=== PATIENT | male | born 1955 | race Caucasian/White ===

== ENCOUNTER → 2019-07-18 09:13 | Outpatient (BNVA) | payer OTHER, SELFPAY | PROVIDERS: PCP Nurse Practitioner Family; Visit Provider Anesthesiology | DX: M54.5 Low back pain (principal); Z79.891 Long term (current) use of opiate analgesic | CPT/HCPCS: 99213; 99214 ==

== ENCOUNTER → 2019-09-15 09:12 | Outpatient (BNVA) | payer OTHER, SELFPAY | PROVIDERS: PCP Nurse Practitioner Family; Visit Provider Anesthesiology | DX: G89.29 Other chronic pain (principal); M48.061 Spinal stenosis, lumbar region without neurogenic claudication; M51.36 Other intervertebral disc degeneration, lumbar region; M47.816 Spondylosis without myelopathy or radiculopathy, lumbar region; M96.1 Postlaminectomy syndrome, not elsewhere classified; Z79.891 Long term (current) use of opiate analgesic | CPT/HCPCS: 99214 ==

== ENCOUNTER 2019-10-17 09:19 | Outpatient (CLI) | payer MEDICARE, BC, SELFPAY ==
--- NOTE | 2019-10-17 | MR_ITS ---
WS: [id number] MRI HEAD WITH CONTRAST TECHNIQUE: Sagittal T1, T2 axial, T2 axial FLAIR, axial susceptibility weighted imaging, axial diffus ion weighted images, and coronal T2 images were obtained. Pre and post-T1 axial and post T1 coronal i mages. ADC and FSPGR images. CLINICAL INFORMATION: HEADACHE WITH WEIGHT LOSS COMPARISON: None. FINDINGS: No evidence of restricted diffusion to suggest acute ischemia. Ventricular system and basal cisterns are patent. Mild small vessel changes. Moderate parenchymal volume loss. Normal posterior fossa. Norm al vascular flow voids at the skull base. No extra-axial fluid collections. No evidence of mass or ma ss effect. Ethmoid sinusitis. Mastoid air cells well aerated. Paranasal sinuses are otherwise well ae rated. Normal optic chiasm and pituitary infundibulum. No abnormal intracranial enhancement. Normal dural ve nous sinuses. MR/MR head wo/w con [id number] IMPRESSION: 1. No evidence of restricted diffusion to suggest acute ischemia. 2. Mild small vessel changes with moderate parenchymal volume loss. 3. No abnormal gadolinium enhancement. 4. Ethmoid sinusitis 5. No hemosiderin on the susceptibility weighted images.
== END 2019-10-17 09:20 | disposition home or self-care (01) ==
LOC: RADSHAW 09:20
PROVIDERS: PCP Nurse Practitioner Family; Visit Provider Nurse Practitioner Family
DX: R51 Headache (principal); R63.4 Abnormal weight loss; J32.2 Chronic ethmoidal sinusitis
CPT/HCPCS: 70553; A9579

== ENCOUNTER → 2020-01-12 09:15 | Outpatient (BNVA) | payer OTHER, SELFPAY | PROVIDERS: PCP Nurse Practitioner Family; Visit Provider Anesthesiology | DX: G89.29 Other chronic pain (principal); M51.36 Other intervertebral disc degeneration, lumbar region; M48.061 Spinal stenosis, lumbar region without neurogenic claudication; M47.816 Spondylosis without myelopathy or radiculopathy, lumbar region; M47.819 Spondylosis without myelopathy or radiculopathy, site unspecified; M96.1 Postlaminectomy syndrome, not elsewhere classified; M25.551 Pain in right hip; M25.552 Pain in left hip; Z79.891 Long term (current) use of opiate analgesic | CPT/HCPCS: 99214 ==

== ENCOUNTER → 2020-03-06 13:15 | Outpatient (BNVA) | payer OTHER, SELFPAY | PROVIDERS: PCP Nurse Practitioner Family; Visit Provider Anesthesiology | DX: G89.29 Other chronic pain (principal); M47.816 Spondylosis without myelopathy or radiculopathy, lumbar region; M48.061 Spinal stenosis, lumbar region without neurogenic claudication; M51.36 Other intervertebral disc degeneration, lumbar region; M47.819 Spondylosis without myelopathy or radiculopathy, site unspecified; M96.1 Postlaminectomy syndrome, not elsewhere classified; Z79.891 Long term (current) use of opiate analgesic | CPT/HCPCS: 99213; 99214 ==

== ENCOUNTER → 2020-05-10 12:37 | Outpatient (BNVA) | payer OTHER, SELFPAY | PROVIDERS: PCP Nurse Practitioner Family; Visit Provider Anesthesiology | DX: G89.29 Other chronic pain (principal); M96.1 Postlaminectomy syndrome, not elsewhere classified; M47.816 Spondylosis without myelopathy or radiculopathy, lumbar region; M48.061 Spinal stenosis, lumbar region without neurogenic claudication; M51.36 Other intervertebral disc degeneration, lumbar region; M47.819 Spondylosis without myelopathy or radiculopathy, site unspecified; Z79.891 Long term (current) use of opiate analgesic | CPT/HCPCS: 99213; 99214 ==

== ENCOUNTER → 2020-07-11 13:36 | Outpatient (BNVA) | payer OTHER, SELFPAY | PROVIDERS: PCP Nurse Practitioner Family; Visit Provider Anesthesiology | DX: G89.29 Other chronic pain (principal); M47.816 Spondylosis without myelopathy or radiculopathy, lumbar region; M51.36 Other intervertebral disc degeneration, lumbar region; M48.061 Spinal stenosis, lumbar region without neurogenic claudication; M96.1 Postlaminectomy syndrome, not elsewhere classified; M47.819 Spondylosis without myelopathy or radiculopathy, site unspecified; Z79.891 Long term (current) use of opiate analgesic | CPT/HCPCS: 99213; 99214 ==

== ENCOUNTER → 2020-09-05 14:00 | Outpatient (BNVA) | payer OTHER, SELFPAY | PROVIDERS: PCP Nurse Practitioner Family; Visit Provider Anesthesiology | DX: G89.29 Other chronic pain (principal); M96.1 Postlaminectomy syndrome, not elsewhere classified; M47.816 Spondylosis without myelopathy or radiculopathy, lumbar region; M48.061 Spinal stenosis, lumbar region without neurogenic claudication; M51.36 Other intervertebral disc degeneration, lumbar region; M47.819 Spondylosis without myelopathy or radiculopathy, site unspecified; Z79.891 Long term (current) use of opiate analgesic | CPT/HCPCS: 99213 ==

== ENCOUNTER → 2020-11-07 13:16 | Outpatient (BNVA) | payer OTHER, SELFPAY | PROVIDERS: PCP Nurse Practitioner Family; Visit Provider Anesthesiology | DX: G89.29 Other chronic pain (principal); M47.816 Spondylosis without myelopathy or radiculopathy, lumbar region; M48.061 Spinal stenosis, lumbar region without neurogenic claudication; M51.36 Other intervertebral disc degeneration, lumbar region; M96.1 Postlaminectomy syndrome, not elsewhere classified; Z79.891 Long term (current) use of opiate analgesic | CPT/HCPCS: 99213 ==

== ENCOUNTER → 2021-01-10 10:02 | Outpatient (BNVA) | payer OTHER, SELFPAY | PROVIDERS: PCP Family Medicine; Visit Provider Anesthesiology | DX: G89.29 Other chronic pain (principal); M47.816 Spondylosis without myelopathy or radiculopathy, lumbar region; M48.061 Spinal stenosis, lumbar region without neurogenic claudication; M51.36 Other intervertebral disc degeneration, lumbar region; M96.1 Postlaminectomy syndrome, not elsewhere classified; Z79.891 Long term (current) use of opiate analgesic | CPT/HCPCS: 99213 ==

== ENCOUNTER → 2021-03-12 14:02 | Outpatient (BNVA) | payer OTHER, SELFPAY | PROVIDERS: PCP Family Medicine; Visit Provider Anesthesiology | DX: G89.29 Other chronic pain (principal); M96.1 Postlaminectomy syndrome, not elsewhere classified; M48.061 Spinal stenosis, lumbar region without neurogenic claudication; M51.36 Other intervertebral disc degeneration, lumbar region; M47.816 Spondylosis without myelopathy or radiculopathy, lumbar region; M47.819 Spondylosis without myelopathy or radiculopathy, site unspecified; Z79.891 Long term (current) use of opiate analgesic | CPT/HCPCS: 99213 ==

== ENCOUNTER → 2021-05-20 09:41 | Outpatient (BNVA) | payer OTHER, SELFPAY | PROVIDERS: PCP Family Medicine; Visit Provider Anesthesiology | DX: G89.29 Other chronic pain (principal); M96.1 Postlaminectomy syndrome, not elsewhere classified; M47.816 Spondylosis without myelopathy or radiculopathy, lumbar region; M48.061 Spinal stenosis, lumbar region without neurogenic claudication; M51.36 Other intervertebral disc degeneration, lumbar region; M47.819 Spondylosis without myelopathy or radiculopathy, site unspecified; Z79.891 Long term (current) use of opiate analgesic; Z87.891 Personal history of nicotine dependence | CPT/HCPCS: 99213 ==

== ENCOUNTER → 2022-11-02 11:30 | Outpatient (BNVA) | payer MEDICARE, BC, SELFPAY | PROVIDERS: PCP Family Medicine; Visit Provider Family Medicine | DX: I10 Essential (primary) hypertension (principal); Z12.5 Encounter for screening for malignant neoplasm of prostate; Z76.89 Persons encountering health services in other specified circumstances | CPT/HCPCS: 80053; 80061; 85025; G0103 ==

== ENCOUNTER 2025-04-16 07:08 | Inpatient (IN) | payer MEDICARE, BC, SELFPAY ==
--- OUTSIDE RECORDS SUMMARY | 2024-04-22 04:00 | XMS_ITS ---
Author Organization [facility] Address [address] [place] [address] Care Team Providers Care Pipe Roller Name Role Phone Bill Robert Primary Care Provider Unavailabl e Migration, Provider Unavailable Unavailable REASON FOR VISIT EMR-Richard Encounters Encounter Location Date Provider Diagnosis Migrated_Facility 0 0 04/22/2024 Provider Migration Plan Of Treatment No Information Progress Notes * Tommie GRANDADOB:1955 (70 yo M)Acc No.[id number]:04/22/2024 Patient: Tommie HONG :1955 A ge:69 Y S ex:Male Address:[address], [place], [address] Subjective: * Chief Complaints: * E MR-Richard * * Date:
--- OUTSIDE RECORDS SUMMARY | 2024-04-23 04:00 | XMS_ITS ---
Author Organization [facility] Address [address] [place] [address] Care Team Providers Care Director Of Field Coordination Name Role Phone Bill Robert Primary Care Provider Unavailabl e Migration, Provider Unavailable Unavailable REASON FOR VISIT EMR-Richard Encounters Encounter Location Date Provider Diagnosis Migrated_Facility 0 0 04/23/2024 Provider Migration Plan Of Treatment No Information Progress Notes * Tommie GRANDADOB:1955 (70 yo M)Acc No.[id number]:04/23/2024 Patient: Tommie HONG :1955 A ge:69 Y S ex:Male Address:[address], [place], [address] Subjective: * Chief Complaints: * E MR-Richard * * Date:
[2025-04-16] VITALS (67 sets, daily range): BP systolic 87–152; BP diastolic 53–78; PULSE 54–119; RESP 10–18; TEMP 36.4–37.4; O2SAT 88–100
--- NOTE | 2025-04-16 07:12 | ECG_ITS ---
[facility] 2025-[facility]16 Pat Name: Tommie Bella Department: Room: Gender: Male Director Title: : 1955 Requested By: Kinsey Salcedo Order Number: [id number] Barbosa MD: Jaycee Hernandez M.D. Measurements Intervals [place] Rate: 93 P: 73 [place]: 309 QRS: 27 QRSD: 102 T: 74 QT: 456 QTc: 569 Interpretive Statements SINUS RHYTHM WITH SINUS ARRHYTHMIA WITH FIRST DEGREE AV BLOCK MODERATE T-WAVE ABNORMALITY, CONSIDER ANTERIOR ISCHEMIA [-0.1+ mV T-WAVE IN V3/V4] Compared to ECG 10/07/2015 12:48:40 First degree AV block now present Possible ischemia now present Sinus tachycardia no longer present T-wave abnormality still present Electronically Signed On 04-17-2025 19:23:42 CDT by Jaycee Hernandez M.D. [email or web address]
--- NOTE | 2025-04-16 07:12 | XRR_ITS ---
PROCEDURE INFORMATION: Exam: XR Abdomen Exam date and time: 04/16/2025 07:22 AM Age: 70 years old Clinical indication: Abdominal pain; Generalized; Additional info: Abdominal pain, hypoxemia TECHNIQUE: Imaging protocol: Radiologic exam of the abdomen. Views: 2 Views. Upright and supine views. COMPARISON: No relevant prior studies available. FINDINGS: Lungs: COPD/emphysema. No airspace disease. Heart/Mediastinum: Cardiac size and configuration is normal. Gastrointestinal tract: Normal. No bowel dilation. Intraperitoneal space: Normal. No free air. Vasculature: IVC stent over the upper abdomen. Bones/joints: Partial visualization of spinal fixation rods. Osteopenia. XR/XR acute abdomen series [id number] IMPRESSION: 1. COPD/emphysema. 2. No airspace disease.
--- OUTSIDE RECORDS SUMMARY | 2025-04-16 07:12 | XMS_ITS | Patient Health Record ---
Author Organization [facility] Address [address] [place] [address] Care Team Providers Care Solar Resource Assessor Name Role Phone Bill Robert Primary Care Provider Unavailabl e Migration, Provider Unavailable Unavailable Reason For Referral No Information Encounters Encounter Location Date Provider Diagnosis Migrated_Facility 0 0 04/22/2024 Provider Migration Migrated_Facility 0 0 04/23/2024 Provider Migration Plan Of Treatment No Information Insurance Providers Payer Name Payer Address Payer Phone Subscriber Number Group Number Insured Name Patient Relationship to Insured Coverage Start Date Coverage End Date [employer] [place] [address] [place] [phone] [id number] Tommie Bella Self - patient is the insured 6
--- NOTE | 2025-04-16 07:13 | W.ED.NAVMDI ---
HPI - Nausea/Vomiting/Diarrhea General: Chief complaint: Abdominal Pain Stated complaint: n/v x 4 days Time Seen by Provider: 04/16/25 07:08 History of Present Illness: 70-year-old man with a history of hypertension, chronic lumbar pain who presents to the emergency room with nausea and vomiting. He says he is been vomiting for 4 days. He says he been able to make it to the toilet and so he had not sought medical attention until today when he called an ambulance because he could not even make it to the bathroom before he vomited. He has been having bilious vomiting. No focal abdominal pain. No chest pain. He is requiring some oxygen. He has no chest pain and no cough. He initially states he has not had any abdominal pain. However on exam he has a large angry appearing left inguinal hernia with overlying redness. This is unable to be reduced. He says he has been putting hot packs on it Related Data Home Medications ?Medication ?Instructions ?Recorded ?Confirmed Kratom 4 - 5 g PO BID 04/16/25 04/16/25 acetaminophen 500 mg tablet 100 mg PO QID PRN Fever Or Pain 04/16/25 04/16/25 (Tylenol Extra Strength) cholecalciferol (vitamin D3) 125 125 mcg PO DAILY 04/16/25 04/16/25 mcg (5,000 unit) tablet (Vitamin D3) liver extract 1 tab PO DAILY 04/16/25 04/16/25 magnesium glycinate 100 mg PO DAILY 04/16/25 04/16/25 milk thistle 150 mg capsule 150 mg PO BID 04/16/25 04/16/25 saw palmetto 500 mg capsule 500 mg PO BID 04/16/25 04/16/25 vitamin K2 90 mcg capsule 90 mcg PO DAILY 04/16/25 04/16/25 Allergies Allergy/AdvReac Type Severity Reaction Status Date / Time clonidine Allergy Unknown Verified 11/02/22 09:38 codeine Allergy ADR-Nausea Verified 11/02/22 09:38 haloperidol (From Haldol) Allergy ADR-Anxiety Verified 11/02/22 09:38 meperidine (From Demerol) Allergy ALGY-Anaphy Verified 11/02/22 09:38 laxis pentazocine (From Talwin) Allergy ADR-Nausea Verified 11/02/22 09:38 tramadol Allergy ADR-Nausea Verified 11/02/22 09:38 Review of Systems Narrative: Constitutional symptoms: Negative except as documented in HPI. Skin symptoms: Negative except as documented in HPI. Eye symptoms: Negative except as documented in HPI. ENMT symptoms: Negative except as documented in HPI. Respiratory symptoms: Negative except as documented in HPI. Cardiovascular symptoms: Negative except as documented in HPI. Gastrointestinal symptoms: Negative except as documented in HPI. Genitourinary symptoms: Negative except as documented in HPI. Musculoskeletal symptoms: Negative except as documented in HPI. Neurologic symptoms: Negative except as documented in HPI. Psychiatric symptoms: Negative except as documented in HPI. Endocrine symptoms: Negative except as documented in HPI. PFSH ED PFSH: Medical History (Updated 04/16/25 @ 12:05 by Kinsey Mullins MD) Intractable nausea and vomiting Facet joint disease DDD (degenerative disc disease), lumbar Chronic thoracic spine pain Foraminal stenosis of lumbar region Chronic lumbosacral pain Postlaminectomy syndrome of lumbar region Encounter for long-term use of opiate analgesic Hip pain, bilateral DJD (degenerative joint disease), lumbar Surgical History S/P lumbar fusion Status post total hip replacement, bilateral DR. WEBER Family History Father Cancer Social History Smoking and tobacco/nicotine status: former use of tobacco/nicotine Second hand smoke exposure: No Alcohol intake: never Substance/Drug Use: never Adopted: No Caregiver/support person: No Lives independently: Yes Housing: House Marital status: / Physical Exam Narrative: EXAM NARRATIVE: General: Alert, no acute distress. Skin: Warm, dry. Head: Normocephalic, atraumatic. Neck: Supple, trachea midline. Eye: Extraocular movements are intact. Ears, nose, mouth and throat: Dry oral mucosa. Cardiovascular: Regular, Normal peripheral perfusion. Respiratory: Lungs are clear to auscultation, respirations are non-labored, breath sounds are equal, Symmetrical chest wall expansion. Gastrointestinal: Some distention with diffuse tenderness. There is a large area in the inguinal region there is an incarcerated hernia with overlying redness. This is very tender to palpation. Musculoskeletal: Normal ROM, no deformity. Neurological: Alert and oriented, No focal neurological deficit observed. Psychiatric: Cooperative, appropriate mood & affect. Course Vital Signs: Vital signs: Vital Signs Temperature 98.1 F 04/16/25 07:09 Pulse Rate 82 04/16/25 09:38 Respiratory Rate 17 04/16/25 09:38 Blood Pressure 149/69 04/16/25 09:38 Pulse Oximetry 91 04/16/25 09:38 Oxygen Delivery Me thod Nasal Cannula 04/16/25 07:09 Oxygen Flow Rate 3 04/16/25 07:09 MDM - Nausea/Vomiting/Diarrhea Medical Decision Making Medical decision making: Differential diagnosis for this patient with nausea and vomiting including but not limited to and based on the above HPI, review of systems and physical exam: Urinary tract infection. Appendicitis. Cholecystitis. Colitis. small bowel obstruction. crohn's flare. pancreatitis. gastritis. peptic ulcer. cyclic vomiting. Viral illness. Influenza. COVID. Orders placed to evaluate differential diagnosis based on the above differential, HPI and physical exam Lab Review: Laboratory results were reviewed and interpreted by myself the emergency room physician. Leukocytosis with a white count of 15,000. Patient does have acute renal failure with a creatinine of 1.8 initially. Repeat he has a creatinine of 1.6. His chloride is 60 initially and repeat is 67. Potassium has gone down to 2.8 CRP is 200. Urinalysis is negative for infection. Flu COVID and RSV are negative. AB.69/60/56 with an O2 sat of 91%. On 3 L nasal cannula. Bicarb is 71 on this blood gas. EKG: Time 7:32 AM. Rate 93. Normal sinus rhythm, nonspecific ST changes, no ectopy, normal MT & QRS intervals, This was reviewed and interpreted by myself the ER physician at 7:36 AM Repeat EKG: Time 918. Rate 80. Normal sinus rhythm, nonspecific ST changes, no ectopy, normal MT & QRS intervals, This was reviewed and interpreted by myself the ER physician at 9:[address] of the abdomen and pelvis with out contrast: High-grade proximal small bowel obstruction with incarcerated left inguinal hernia with narrow neck high risk for strangulation. Associated induration in the inguinal hernia sac. No pneumatosis. This was reviewed and interpreted by myself the emergency room physician. I also reviewed the radiology report. Consultation: I spoke with Dr. Wan immediately upon findings of the CT scan. He is evaluated the patient in the emergency room and planning to take to the OR. He does request consultation with the hospitalist service for correction of electrolyte abnormalities. Consultation: I spoke with Dr. Adler who will consult on the patient. This was reviewed and interpreted by myself the emergency room physician. I also reviewed the radiology report. I reviewed the patient's medical record. Patient has very little significant medical history. Only takes vitamin D at home. Reexamination: Patient continues to not have any altered mental status. Pressures have been stable. He is extremely tender in his inguinal area. NG tube has been placed. Assessment and plan: Incarcerated inguinal hernia Small bowel obstruction Sepsis Hypoxemia Hypochloridemia Hypokalemia Dehydration Renal failure Metabolic alkalosis ?NG tube placed for small bowel obstruction. -Surgery consulted and patient's going to the ER. ?3 L normal saline bolus and does seem to have some correction of the low chloride. ?40 mill equivalents potassium chloride ordered -3 L normal saline bolus. This is more than the sepsis bolus in an attempt to continue to correct electrolyte abnormalities and particularly chloride. -Broad-spectrum antibiotics were administered. -Sepsis quality measures. -Lactic acid with a reflex was ordered. -Blood cultures were ordered. ?I reevaluated the patient's volume status after sepsis fluids were given. -I discussed the patient with the hospitalist on-call who is admitting the patient. - Discussed findings and plan with patient. Answered any questions. - All laboratory values were reviewed and interpreted personally by myself, the ER physician - All imaging was reviewed and interpreted personally by myself, the ER physician. - Evaluation and treatment of this problem were appropriate in the emergency setting Critical Care: -I spent a total of 55 minutes of critical care time managing the patient, independent of any other practitioner. -The time involved in the performance of separately reportable procedures was not counted towards critical care time. Lab Data 04/16/25 07:13 04/16/25 09:32 Radiology Impressions Chest/Abdomen X-ray 04/16/25 07:12 IMPRESSION: 1. COPD/emphysema. 2. No airspace disease. Abdomen/Pelvis CT 04/16/25 08:06 IMPRESSION: 1. High-grade proximal small bowel obstruction with incarcerated LEFT inguinal hernia with a narrow neck high risk for strangulation. Associated induration in the inguinal hernia sac. No pneumatosis. Recommend urgent surgical consultation. 2. Small bowel distal to the hernia appears collapsed. Colon is collapsed. Notified Kinsey Mullins MD at 04/16/2025 9:08 AM. Laboratory Results WBC 15.63 10^3/uL (3.29-11.43) H 04/16/25 07:13 RBC 5.82 10^6/uL (3.85-5.65) H 04/16/25 07:13 Hgb 17.90 g/dL (11.27-16.99) H 04/16/25 07:13 Hct 51.5 % (37-53) 04/16/25 07:13 MCV 88.5 fl (82-101) 04/16/25 07:13 MCH 30.8 pg (27-33) 04/16/25 07:13 MCHC 34.8 g/dL (30-55) 04/16/25 07:13 RDW 12.6 % (12.1-15.1) 04/16/25 07:13 Plt Count 429 10^3/cmm (157-399) H 04/16/25 07:13 MPV 10.0 fL (7.4-10.4) 04/16/25 07:13 Neut % (Auto) 83.7 % 04/16/25 07:13 Lymph % (Auto) 3.5 % 04/16/25 07:13 [place] % (Auto) 12.1 % 04/16/25 07:13 Eos % (Auto) 0.0 % 04/16/25 07:13 Baso % (Auto) 0.2 % 04/16/25 07:13 Neut # (Auto) 13.09 10^3/uL (1.8-7.7) H 04/16/25 07:13 Lymph # (Auto) 0.5 10^3/uL (0.8-4.8) L 04/16/25 07:13 [place] # (Auto) 1.9 10^3/uL (0.2-0.9) H 04/16/25 07:13 Eos # (Auto) 0.0 10^3/uL (0.0-0.8) 04/16/25 07:13 Baso # (Auto) 0.0 10^3/uL (0.0-0.1) 04/16/25 07:13 Nucleated RBC % (auto) 0 % 04/16/25 07:13 Nucleated RBCs # 0.0 /100WBC 04/16/25 07:13 Specimen Type Arterial 04/16/25 07:16 Sample Site Radial, left 04/16/25 07:16 ABG pH 7.68 (7.35-7.45) H* 04/16/25 07:16 ABG pCO2 60.0 mmHg (35-45) H 04/16/25 07:16 ABG pO2 56.7 mmHg (80.0-100.0) L 04/16/25 07:16 ABG HCO3 71.1 mmol/L (22-26) H 04/16/25 07:16 ABG O2 Saturation 92.9 04/16/25 07:16 ABG Base Excess 42.0 mmol/L (-2.0-2.0) H 04/16/25 07:16 Malcolm Test Pos 04/16/25 07:16 A-a O2 Gradient 2.7 mmHg (5-10) L 04/16/25 07:16 Hematocrit 52.8 % (42-52) H 04/16/25 07:16 Hgb O2 Saturation 91.0 % (95-100) L 04/16/25 07:16 Carboxyhemoglobin 1.2 %THgb (0.4-20.1) 04/16/25 07:16 Methemoglobin 0.8 % (0.4-1.5) 04/16/25 07:16 Total Hemoglobin 17.2 g/dL (14-18) 04/16/25 07:16 Sodium 131.0 mmol/L (131-143) 04/16/25 07:16 Potassium 2.7 mmol/L (3.5-5.0) L 04/16/25 07:16 Glucose 141.0 mg/dL (70-115) H 04/16/25 07:16 Ionized Calcium 1.0 mmol/L (1.1-1.4) L 04/16/25 07:16 O2 Delivery Device Nc 04/16/25 07:16 O2 Liters/Min 3.0 % 04/16/25 07:16 Tin Recovery Worker ID [place] 04/16/25 07:16 Sodium 132 mmol/L (136-145) L 04/16/25 09:32 Potassium 2.8 mmol/L (3.5-5.1) L* 04/16/25 09:32 Chloride 67 mmol/L (98-107) L 04/16/25 09:32 Carbon Dioxide 49 mmol/L (22-29) H* 04/16/25 09:32 Anion Gap 18.8 (5-19) 04/16/25 09:32 BUN 44 mg/dL (8-23) H 04/16/25 09:32 Creatinine 1.6 mg/dL (0.7-1.2) H 04/16/25 09:32 GFR Calculation Not Reportable 04/16/25 09:32 Glucose 124 mg/dL (65-115) H 04/16/25 09:32 Calculated Osmolality 287 mOsm/kg (285-295) 04/16/25 09:32 Lactic Acid 3.1 mmol/L (0.5-2.2) H 04/16/25 07:13 Lactic Acid (Sepsis) 1.6 mmol/L (0.5-2.2) 04/16/25 10: Calcium 8.9 mg/dL (8.5-10.5) 04/16/25 09:32 Total Bilirubin 0.8 mg/dL (0.15-1.2) 04/16/25 07:13 AST 22 U/L (0-40) 04/16/25 07:13 ALT 25 U/L (0-41) 04/16/25 07:13 Alkaline Phosphatase 90 U/L (40-130) 04/16/25 07:13 Troponin T Baseline 24 ng/L (0-15) H 04/16/25 07:13 Troponin T 120 Minute 17.65 ng/L (0-15) H 04/16/25 09:32 Delta Troponin T -6.35 ABS# (0-10) L 04/16/25 09:32 C-Reactive Protein 200.6 mg/L (0.0-4.9) H 04/16/25 07:13 NT-Pro-B Natriuret Pep 133 pg/mL (0-125) H 04/16/25 07:13 Total Protein 7.4 g/dL (6.6-8.7) 04/16/25 07:13 Albumin 4.9 g/dL (3.5-5.2) 04/16/25 07:13 Globulin 2.5 g/dL (1.3-4.6) 04/16/25 07:13 Lipase 88 U/L (13-60) H 04/16/25 07:13 Urine Color Dark yellow (Yellow) A 04/16/25 09:15 Urine Appearance Cloudy (CLEAR) A 04/16/25 09:15 Urine pH 7.5 (5-7) 04/16/25 09:15 Ur Specific [place] 1.018 (1.005-1.030) 04/16/25 09:15 Urine Protein 2+ (Negative) A 04/16/25 09:15 Urine Glucose (UA) Negative (Normal) 04/16/25 09:15 Urine Ketones 2+ (Negative) H 04/16/25 09:15 Urine Blood Trace (Negative) A 04/16/25 09:15 Urine Nitrate Negative (Negative) 04/16/25 09:15 Urine Bilirubin Negative (Negative) 04/16/25 09:15 Urine Urobilinogen 1.0 mg/dL (Negative) 04/16/25 09:15 Ur Leukocyte Esterase Trace (Negative) A 04/16/25 09:15 Urine RBC 0-4 /hpf (0-2) H 04/16/25 09:15 Urine WBC Rare /hpf (0-5) 04/16/25 09:15 Ur Squamous Epith Cells Rare /hpf (0-5) 04/16/25 09:15 Amorphous Sediment Not Reportable 04/16/25 09:15 Urine Bacteria 1+ /hpf (NONE) H 04/16/25 09:15 Hyaline Casts 0-4 /lpf H 04/16/25 09:15 Urine Opiates Screen Negative ng/mL (Negative) 04/16/25 09:15 Ur Barbiturates Screen Negative ng/mL (Negative) 04/16/25 09:15 Ur Phencyclidine Scrn Negative ng/mL (Negative) 04/16/25 09:15 Ur Amphetamines Screen Negative ng/mL (Negative) 04/16/25 09:15 U Benzodiazepines Scrn Negative ng/mL (Negative) 04/16/25 09:15 Urine Cocaine Screen Negative ng/mL (Negative) 04/16/25 09:15 U Marijuana (THC) Screen Negative ng/mL (Negative) 04/16/25 09:15 Influenza A (PCR) Negative (Negative) 04/16/25 07:22 Influenza Type B (PCR) Negative (Negative) 04/16/25 07:22 RSV (PCR) Negative (Negative) 04/16/25 07:22 SARS-CoV-2 (PCR) Negative (Negative) 04/16/25 07:22 All radiology interpretation(s) finalized by discharge Discharge Plan Discharge Patient Disposition: Admitted As Inpatient Admit Provider: Jacinto Wan Clinical Impression: Incarcerated inguinal hernia, Small bowel obstruction, Hypochloremia, Sepsis, Acute renal insufficiency, Hypokalemia, Metabolic alkalosis Condition: Stable Coding Level of Care Code ED Metal Work Duct Installer for Kusum Barnes
[2025-04-16 07:21] LABS: Hematocrit 51.5 % (37-53); Hemoglobin 17.90 g/dL (11.27-16.99); Mean Corpuscular HGB Conc 34.8 g/dL (30-55); Mean Corpuscular Hemoglobin 30.8 pg (27-33); Mean Corpuscular Volume 88.5 fl (82-101); Nucleated Red Blood Cells % 0 %; Platelet Count 429 10^3/cmm (157-399); Red Blood Count 5.82 10^6/uL (3.85-5.65); White Blood Count 15.63 10^3/uL (3.29-11.43)
[2025-04-16 07:27] LABS: ABG PCO2 60.0 mmHg (35-45); ABG PH Result 7.68 (7.35-7.45); Alveolar-Arterial Oxygen Gradi 2.7 mmHg (5-10); Arterial Blood Gas Hematocrit 52.8 % (42-52); Blood Gas Allen Test Pos; Blood Gas LPM 3.0 %; Blood Gas Operator Identificat WALCI; Blood Gas Sample Site Radial, left; Blood Gas Sample Type Arterial; Carboxyhemoglobin 1.2 %THgb (0.4-20.1); Glucose Level-ABG 141.0 mg/dL (70-115); HCO3 ABG 71.1 mmol/L (22-26); Ionized Calcium Level - ABG 1.0 mmol/L (1.1-1.4); Methemoglobin 0.8 % (0.4-1.5); Oxygen Saturation ABG 92.9; PO2 ABG 56.7 mmHg (80.0-100.0); Potassium Level - ABG 2.7 mmol/L (3.5-5.0); Sodium Level - ABG 131.0 mmol/L (131-143)
[2025-04-16 07:39] LABS: Lactic Sepsis W/Reflex 3.1 mmol/L (0.5-2.2)
[2025-04-16] MEDS: ondansetron 2 mg/ML SDV 2 mL 8 MG IVP ×2 (07:43→08:20)
[2025-04-16 07:44] LABS: Troponin(5th) Baseline 24 ng/L (0-15)
[2025-04-16 07:51] LABS: Alanine Aminotransferase 25 U/L (0-41); Albumin Level 4.9 g/dL (3.5-5.2); Alkaline Phosphatase 90 U/L (40-130); Aspartate Amino Transferase 22 U/L (0-40); Blood Urea Nitrogen 44 mg/dL (8-23); Calcium 11.3 mg/dL (8.5-10.5); Chloride 60 mmol/L (98-107); Creatinine Clr Calc Pharmacy 39.5084; Globulin 2.5 g/dL (1.3-4.6); Glucose 140 mg/dL (65-115); Lipase 88 U/L (13-60); NT Pro B Type Natriuretic Pept 133 pg/mL (0-125); Osmolality Calculated 291 mOsm/kg (285-295); Potassium 3.0 mmol/L (3.5-5.1); Sodium 134 mmol/L (136-145); Total Protein 7.4 g/dL (6.6-8.7)
[2025-04-16 08:05] LABS: Respiratory Syncytial Virus Ce NEGATIVE (Negative); SARS-CoV-2 PCR NEGATIVE (Negative)
--- NOTE | 2025-04-16 08:06 | CT_ITS ---
WS: [id number] CT ABDOMEN PELVIS TECHNIQUE: Noncontrast CT of the abdomen and pelvis with coronal and sagittal reformatted images. CLINICAL INFORMATION: Abdominal pain COMPARISON: None. DLP: 575.[address] scans at [facility] use at least one of these dose optimization techniques: automated exposure control; mA and/or kV adjustment per patient size (includes targeted exams where dose is matched to clinical indication); or iterative reconstruction. FINDINGS: Fluid-filled stomach and proximal small bowel with dilatation. Small bowel loops measure up to 3.8 cm. Incarcerated LEFT inguinal hernia with a narrow neck. Surrounding inflammatory changes with edema and induration in the hernia sac. Small bowel distal to the hernia is collapsed. Colon is collapsed. No free air. Recommend surgical consultation. Bowel wall enhancement not evaluated on this noncontrast study Tree-in-bud infiltrates in the lingula likely inflammatory. Normal noncontrast liver and spleen. Small esophageal hiatal hernia. Noncontrast pancreas appears normal. Adrenal glands are normal. No hydronephrosis in either kidney. Small RIGHT renal cyst. Urine distended bladder. Prostate measures 4.4 cm. Recommend correlation PSA. Images in the pelvis degraded due to bilateral THAs. Extensive postoperative changes thoracic and lumbar spine with ankylosis. Osteopenia. Aortic calcification. Tortuous abdominal aorta. IVC filter. CT/CT abdomen pelvis wo con [id number] IMPRESSION: 1. High-grade proximal small bowel obstruction with incarcerated LEFT inguinal hernia with a narrow neck high risk for strangulation. Associated induration i n the inguinal hernia sac. No pneumatosis. Recommend urgent surgical consultati on. 2. Small bowel distal to the hernia appears collapsed. Colon is collapsed. Notified Kinsey Mullins MD at 04/16/2025 9:08 AM.
[2025-04-16 08:42] LABS: Anion Gap 27.0 (5-19); Carbon Dioxide > 50 mmol/L (22-29)
[2025-04-16] MEDS: linezolid premix 600 MG/300 ML PREMIX 300 MG IV (09:03)
[2025-04-16] MEDS: LORazepam 1 MG/0.5 ML injection IVP (09:03)
[2025-04-16 09:06] LABS: Reflex Lactate Order REFLEX LACTIC ORDERD
--- NOTE | 2025-04-16 09:18 | ECG_ITS ---
[facility] Test Date: 2025-04-16 Pat Name: Tommie Bella Department: Room: Gender: Male Physician'S Assistant: : 1955 Requested By: Kinsey Salcedo Order Number: [id number] Chelsey MD: Jaycee Hernandez M.D. Measurements Intervals [place] Rate: 80 P: -80 UT: 159 QRS: 46 QRSD: 69 T: -60 QT: 175 QTc: 202 Interpretive Statements Regular supra ventricular rhythm NONSPECIFIC ST & T-WAVE ABNORMALITY Compared to ECG 04/16/2025 07:32:00 Ectopic atrial rhythm now present Sinus rhythm no longer present Sinus arrhythmia no longer present First degree AV block no longer present Possible ischemia no longer present T-wave abnormality still present Electronically Signed On 04-17-2025 19:45:08 CDT by Jaycee Hernandez M.D. [id number]
[2025-04-16 09:23] LABS: Glucose Urine UA Negative (Normal); Nitrate Urine Negative (Negative); Specific Gravity, Urine 1.018 (1.005-1.030)
[2025-04-16 09:28] LABS: PCP Screen Urine Negative (Negative)
[2025-04-16 09:45] LABS: UA Manual Slide Review YES; UA Slide Review UA Slide Review Perf
[2025-04-16 10:02] LABS: Troponin 5 2HR 17.65 ng/L (0-15)
[2025-04-16 10:03] LABS: Blood Urea Nitrogen 44 mg/dL (8-23); Calcium 8.9 mg/dL (8.5-10.5); Chloride 67 mmol/L (98-107); Creatinine Clr Calc Pharmacy 44.4470; Glucose 124 mg/dL (65-115); Osmolality Calculated 287 mOsm/kg (285-295); Sodium 132 mmol/L (136-145)
[2025-04-16 10:12] LABS: Troponin 5 2HR Delta -6.35 ABS# (0-10)
[2025-04-16 10:15] LABS: Anion Gap 18.8 (5-19)
[2025-04-16 10:18] LABS: Carbon Dioxide 49 mmol/L (22-29); Potassium 2.8 mmol/L (3.5-5.1)
--- NOTE | 2025-04-16 10:50 | PC.NURSE ---
PHARMACY CONTACTED TO SWITCH POTASSIUM INFUSION DUE TO NO CENTRAL LINE. PER PHARMACY WILL BRING MIXED BAG DOWN FOR PERIPHERAL USE.
[2025-04-16 10:55] LABS: Lactic Acid level (Lactate) 1.6 mmol/L (0.5-2.2)
--- NOTE | 2025-04-16 11:14 | XRR_ITS ---
PROCEDURE INFORMATION: Exam: XR Chest Exam date and time: 04/16/2025 11:19 AM Age: 70 years old Clinical indication: Device placement; Ng tube; Additional info: Ng tube placement TECHNIQUE: Imaging protocol: Radiologic exam of the chest. Views: 1 view. COMPARISON: CT abdomen pelvis wo con [id number] 04/16/2025 08:25 AM FINDINGS: Tubes, catheters and devices: Enteric tube tip in the body of the stomach. Lungs: Left basilar atelectasis/scarring. Pleural spaces: Unremarkable. No pleural effusion. No pneumothorax. Heart/Mediastinum: Cardiac size and configuration is normal. Vasculature: Atherosclerotic vascular disease. IVC filter over the upper abdomen. Bones/joints: Partial visualization of spinal fixation rods. Gastrointestinal tract: Dilated proximal small bowel in the upper abdomen. XR/XR chest 1V portable [id number] IMPRESSION: Enteric tube tip in the body of the stomach.
--- NOTE | 2025-04-16 11:25 | PC.NURSE ---
NG TUBE PLACED, XRAY OBTAINED FOR PLACEMENT. XRAY CONFIRMED PROPER PLACEMENT.
--- NOTE | 2025-04-16 11:27 | ECG_ITS ---
[facility] Test Date: 2025-04-16 Pat Name: Tommie Bella Department: Room: ICU12 Gender: Male [employer] Administrator: : 1955 Requested By: Jacinto Wan Order Number: [id number] Chelsey MD: Jaycee Hernandez M.D. Measurements Intervals [place] Rate: 91 P: 72 VT: 196 QRS: 10 QRSD: 96 T: 71 QT: 482 QTc: 593 Interpretive Statements SINUS RHYTHM WITH FREQUENT SUPRAVENTRICULAR PREMATURE COMPLEXES ABNORMAL RHYTHM ECG Compared to ECG 04/16/2025 09:18:07 Ectopic atrial rhythm no longer present T-wave abnormality no longer present Electronically Signed On 04-17-2025 19:21:20 CDT by Jaycee Hernandez M.D. [email or web address] [id number]
--- NOTE | 2025-04-16 11:32 | PM.CONSULT ---
Providers/Reason For Consult Consulting Physician/Specialty*: bernie winters MD general surgery Reason for Consult*: incarcerated ledt inguinal hernia possibly strangulated Requesting Physician: george adler MD hospitalist Attending Physician: Jacinto Winters MD Primary Care Provider: Chato Marquez DO History of Present Illness History of Present Illness Tommie Bella is a 70 year old male with 4-5 day history of N/V and had BM today. No F/C/S. No abdominal surgeries but did have pain pump in LL[place] for chronic back pain but removed. He has had several back surgeries for pain. He is not on strong blood thinners. CT showing what appears to be incarcerated left inguinal hernia Review of Systems Narrative: Constitutional: denies rigors, singnificant weight gain, increased appetite HEENT: denies chronic cough, blurry vision, excessive tearing, eye pain, flashing lights, odynophagia, painful mastication, change in voice, change in taste, chronic sore throat, hypersalivation Heart: denies racing heart, palpitations, othropnea, PND Lungs: denies hemoptysis, pain with deep inspiration, chronic bronchitis GI: denies hematemesis, hematochezia, dysphagia, tenesmus : denies polyuria, hematuria, painful micturation Musculoskeletal: denies hemarthrosis, Muscle wasting, change in amubation Neuro: denies new onset syncope, dysesthesia, dysequilibrium, ptosis eyelid or face SKin: denies new onset hyperalgia, new rash new cyanosis Endocrine: denies new polyuria, polydipsia, polyphagia, heat intolerance, excessive energy Hem/Onc: denies new petechiae, swollen glands, new excessive epstaxis Psych: denies racing thought Medications/Allergies Home Medications ?Medication ?Instructions ?Recorded ?Confirmed ?Last Taken ?Type Kratom 4 - 5 g PO BID 04/16/25 04/16/25 04/15/25 History acetaminophen 500 mg tablet 100 mg PO QID PRN Fever Or Pain 04/16/25 04/16/25 Unknown History (Tylenol Extra Strength) cholecalciferol (vitamin D3) 125 125 mcg PO DAILY 04/16/25 04/16/25 04/09/25 History mcg (5,000 unit) tablet (Vitamin D3) liver extract 1 tab PO DAILY 04/16/25 04/16/25 04/08/25 History magnesium glycinate 100 mg PO DAILY 04/16/25 04/16/25 04/09/25 History milk thistle 150 mg capsule 150 mg PO BID 04/16/25 04/16/25 04/09/25 History saw palmetto 500 mg capsule 500 mg PO BID 04/16/25 04/16/25 04/10/25 History vitamin K2 90 mcg capsule 90 mcg PO DAILY 04/16/25 04/16/25 04/09/25 History Allergies Allergy/AdvReac Type Severity Reaction Status Date / Time clonidine Allergy Unknown Verified 11/02/22 09:38 codeine Allergy ADR-Nausea Verified 11/02/22 09:38 haloperidol (From Haldol) Allergy ADR-Anxiety Verified 11/02/22 09:38 meperidine (From Demerol) Allergy ALGY-Anaphy Verified 11/02/22 09:38 laxis pentazocine (From Talwin) Allergy ADR-Nausea Verified 11/02/22 09:38 tramadol Allergy ADR-Nausea Verified 11/02/22 09:38 PFSH Acute PFSH: Medical History (Updated 04/16/25 @ 10:52 by Kinsey Mullins MD) Facet joint disease DDD (degenerative disc disease), lumbar Chronic thoracic spine pain Foraminal stenosis of lumbar region Chronic lumbosacral pain Postlaminectomy syndrome of lumbar region Encounter for long-term use of opiate analgesic Hip pain, bilateral DJD (degenerative joint disease), lumbar Surgical History S/P lumbar fusion Status post total hip replacement, bilateral DR. WEBER Family History Father Cancer Social History Smoking and tobacco/nicotine status: former use of tobacco/nicotine Second hand smoke exposure: No Alcohol intake: never Substance/Drug Use: never Adopted: No Caregiver/support person: No Lives independently: Yes Housing: House Marital status: / Vitals/I&O/Wt Last Vital Signs Temp 98.1 F 04/16/25 07:09 Pulse 82 04/16/25 09:38 Resp 17 04/16/25 09:38 BP 149/69 04/16/25 09:38 Pulse Ox 91 04/16/25 09:38 O2 Del Method Nasal Cannula 04/16/25 07:09 O2 Flow Rate 3 04/16/25 07:09 Weight last 48 hrs Weight 166 lb Physical Exam Narrative: Patient is a well developed well nourished and in NAD and is afebrile with vitals stable and is answering questions appropriately with a normal affect and is alert and oriented x3 HEENT: normocephalic with normal external ears and nonicteric, oral mucosa moist and dentition normal for age, trachea midline with no large masses visualized Heart: RRR, no gallops murmurs or rubs, normal PMI with no thrills Lungs: normal excursions, no loud audible wheezing, no subcutaneous emphysema Abdomen: nondistended, no gross hepatosplenomegaly, no masses, no rigidity or rebound, no loud borborygmi Neuro: nonfocal, ARELLANO, grossly normal sensation Musculoskeletal: good muscle tone, no fasciculations, normal gait Skin: pink warm and dry with no rashes or ecchymosis Vascular: good radial pulses, no ulceration, less than 2 second capillary refill in hand : deferred Left groin: reddened skin over incarcerated left inguinal hernia that is tender to palpation. Data 04/16/25 07:13 04/16/25 09:32 Micro: Microbiology 04/16/25 07:39 Blood Culture - Preliminary Blood SPECIMEN COLLECTED 04/16/25 07:35 Blood Culture - Preliminary Blood SPECIMEN COLLECTED A&P Assessment and plan 1. Incarcerated inguinal hernia: Plan: Patient to have repair of left inguinal hernia and possible bowel resection and ostomy if bowel is strangulated. He understands risks, benefits and alternatives to procedure and wishes to proceed. He will need his lytes corrected prior to surgery and Dr. Adler hospitalist was consulted. PDMP PDMP Reviewed: Not Reviewed Coding Level of Care Code Acute Code for Chg Fwd Diagnoses Incarcerated inguinal hernia
--- NOTE | 2025-04-16 11:55 | PM.CONSULT ---
Providers/Reason For Consult Consulting Physician/Specialty*: Samson Adler MD hospitalist Reason for Consult*: Abnormal electrolytes with chloride 60 Requesting Physician: Jacinto Pitts MD Surgeon Attending Physician: Jacinto Wan MD Primary Care Provider: Chato Marquez DO History of Present Illness History of Present Illness Tommie Bella is a 70 year old male in relatively good health not on any meds and has not seen a physician since Dr. Olmstead left the area 3 years ago. He takes just aspirin fish oil and blvn-eiz-[id number] food supplements including saw palmetto magnesium kratom. He has had increasing left lower quadrant abdominal pain with tenderness and some redness. He was found to have incarcerated hernia. This shows a high-grade small bowel obstruction left inguinal hernia with a narrow neck high risk for strangulation no pneumatosis. Small bowel distal to the hernia and the colon are all collapsed Review of Systems Narrative: General No fevers chills he has been dizzy for 2 days lives alone Cardiovascular no chest pain Respiratory no shortness of breath he has had some cough with his nausea vomiting he has had abdominal pain 5/10 left lower quadrant never had a hernia until this episode GI positive for nausea vomiting for 4 days copious amounts he has been pooping also with bowel movement yesterday and not passing gas for 2 days states his stool was loose no dysuria he has dark urine but less amounts recently Medications/Allergies Home Medications ?Medication ?Instructions ?Recorded ?Confirmed ?Last Taken ?Type Kratom 4 - 5 g PO BID 04/16/25 04/16/25 04/15/25 History acetaminophen 500 mg tablet 100 mg PO QID PRN Fever Or Pain 04/16/25 04/16/25 Unknown History (Tylenol Extra Strength) cholecalciferol (vitamin D3) 125 125 mcg PO DAILY 04/16/25 04/16/25 04/09/25 History mcg (5,000 unit) tablet (Vitamin D3) liver extract 1 tab PO DAILY 04/16/25 04/16/25 04/08/25 History magnesium glycinate 100 mg PO DAILY 04/16/25 04/16/25 04/09/25 History milk thistle 150 mg capsule 150 mg PO BID 04/16/25 04/16/25 04/09/25 History saw palmetto 500 mg capsule 500 mg PO BID 04/16/25 04/16/2525 History vitamin K2 90 mcg capsule 90 mcg PO DAILY 04/16/25 04/16/25 04/09/25 History Allergies Allergy/AdvReac Type Severity Reaction Status Date / Time clonidine Allergy Unknown Verified 11/02/22 09:38 codeine Allergy ADR-Nausea Verified 11/02/22 09:38 haloperidol (From Haldol) Allergy ADR-Anxiety Verified 11/02/22 09:38 meperidine (From Demerol) Allergy ALGY-Anaphy Verified 11/02/22 09:38 laxis pentazocine (From Talwin) Allergy ADR-Nausea Verified 11/02/22 09:38 tramadol Allergy ADR-Nausea Verified 11/02/22 09:38 PFSH Acute PFSH: Medical History (Updated 04/16/25 @ 12:05 by Kinsey Mullins MD) Intractable nausea and vomiting Facet joint disease DDD (degenerative disc disease), lumbar Chronic thoracic spine pain Foraminal stenosis of lumbar region Chronic lumbosacral pain Postlaminectomy syndrome of lumbar region Encounter for long-term use of opiate analgesic Hip pain, bilateral DJD (degenerative joint disease), lumbar Surgical History S/P lumbar fusion Status post total hip replacement, bilateral DR. WEBER Family History Father Cancer Social History Smoking and tobacco/nicotine status: former use of tobacco/nicotine Second hand smoke exposure: No Alcohol intake: never Substance/Drug Use: never Adopted: No Caregiver/support person: No Lives independently: Yes Housing: House Marital status: / Vitals/I&O/Wt Last Vital Signs Temp 98.1 F 04/16/25 07:09 Pulse 82 04/16/25 09:38 Resp 17 04/16/25 09:38 BP 149/69 04/16/25 09:38 Pulse Ox 91 04/16/25 09:38 O2 Del Method Nasal Cannula 04/16/25 07:09 O2 Flow Rate 3 04/16/25 07:09 Weight last 48 hrs Weight 75.296 kg Physical Exam Narrative: General Well-developed thin maleIn no acute cardiopulmonary distress CV regular rate and rhythm frequent ectopy Lungs prolonged x-ray phase occasional wheeze Abdomen positive bowel tones soft he is tender with erythema overlying his left lower quadrant mass which is baseball sized no rebound tenderness Calves no tenderness cords pretibial edema Skin warm and dry Mentation alert and oriented Data 04/16/25 07:13 04/16/25 09:32 Micro: Microbiology 04/16/25 07:39 Blood Culture - Preliminary Blood SPECIMEN COLLECTED 04/16/25 07:35 Blood Culture - Preliminary Blood SPECIMEN COLLECTED A&P Assessment and plan 1. Incarcerated inguinal hernia: Awaiting surgery 2. Hypochloremic alkalosis: Patient has received 2 L NS. Will give additional 2 L NS with 40 mill equivalents KCl per liter over 4 hours 3. Intractable nausea and vomiting: NG tube and antiemetics 4. Hypokalemia due to excessive gastrointestinal loss of potassium: Replaced as above surgery and cardiac monitoring PDMP PDMP Reviewed: Not Reviewed Consult Attestations Medical Necessity Statement: Patient is admitted to hospital for correction of electrolytes in the ICU, surgery and then will require greater than 2 midnights in hospital Coding Level of Care Code 23679 Diagnoses Incarcerated inguinal hernia Hypochloremic alkalosis E87.3 Intractable nausea and vomiting R11.2 Hypokalemia due to excessive gastrointestinal loss of potassium E87.6 Time Spent (min) 55
--- NOTE | 2025-04-16 11:55 | ANES.PREANE2 ---
Pre-Anesthetic Assessment Height/Weight: Height 5 ft 11 in Weight 166 lb Temp Pulse Resp BP Pulse Ox O2 Del Method O2 Flow Rate 98.1 F 82 17 149/69 91 Nasal Cannula 3 04/16/25 07:09 04/16/25 09:38 04/16/25 09:38 04/16/25 09:38 04/16/25 09:38 04/16/25 07:09 04/16/25 07:09 Preop Diagnosis: incarcerated ledt inguinal hernia Operation Date: 04/16/25 12:40 Proposed Procedures p Inguinal Hernia Repair(Left) - Jacinto Wan MD s Possible Exploratory Laparotomy(Not Applicable) - Jacinto Wan MD Was Beta Valorie taken within 24 hours: N/A Was Clonidine taken within 24 hours: N/A Social Tobacco and No alcohol Exam alert, oriented x 3, clear to auscultation bilaterally and regular rate & rhythm Airway Submandibular: within normal limits Cervical ROM: within normal limits Mallampati: Class III Comments: Comments: implants Anesthetic Plan ASA status: 4E Anesthesia: General Other: No prior issues with anesthesia Patient presents with a incarcerated hernia with bowel obstruction Patient states that he has been throwing up for the last 4 days and has not eaten for at least 3 days Denies any cardiac issues Current smoker Labs reviewed from today, hemoglobin 17.9, WBC 15.6, NA 132, K+ 2.8, CR 1.6, lactic acid 3.1 Patient is currently receiving IV potassium EKG sinus rhythm with PVCs Mildly elevated troponins, troponin T 24 with a proBNP of 133. Patient currently has no chest pain Patient currently has a nasogastric tube in place Plan for GETA with RSI Medications/Allergies Home Medications ?Medication ?Instructions ?Recorded ?Confirmed ?Last Taken ?Type Kratom 4 - 5 g PO BID 04/16/25 04/16/25 04/15/25 History acetaminophen 500 mg tablet 100 mg PO QID PRN Fever Or Pain 04/16/25 04/16/25 Unknown History (Tylenol Extra Strength) cholecalciferol (vitamin D3) 125 125 mcg PO DAILY 04/16/25 04/16/25 04/09/25 History mcg (5,000 unit) tablet (Vitamin D3) liver extract 1 tab PO DAILY 04/16/25 04/16/25 04/08/25 History magnesium glycinate 100 mg PO DAILY 04/16/25 04/16/25 04/09/25 History milk thistle 150 mg capsule 150 mg PO BID 04/16/25 04/16/25 04/09/25 History saw palmetto 500 mg capsule 500 mg PO BID 04/16/25 04/16/25 04/10/25 History vitamin K2 90 mcg capsule 90 mcg PO DAILY 04/16/25 04/16/25 04/09/25 History Allergies Allergy/AdvReac Type Severity Reaction Status Date / Time clonidine Allergy Unknown Verified 11/02/22 09:38 codeine Allergy ADR-Nausea Verified 11/02/22 09:38 haloperidol (From Haldol) Allergy ADR-Anxiety Verified 11/02/22 09:38 meperidine (From Demerol) Allergy ALGY-Anaphy Verified 11/02/22 09:38 laxis pentazocine (From Talwin) Allergy ADR-Nausea Verified 11/02/22 09:38 tramadol Allergy ADR-Nausea Verified 11/02/22 09:38 [facility] Anesthesia Medical History (Updated 04/16/25 @ 10:52 by Kinsey Mullins MD) Facet joint disease DDD (degenerative disc disease), lumbar Chronic thoracic spine pain Foraminal stenosis of lumbar region Chronic lumbosacral pain Postlaminectomy syndrome of lumbar region Encounter for long-term use of opiate analgesic Hip pain, bilateral DJD (degenerative joint disease), lumbar Surgical History S/P lumbar fusion Status post total hip replacement, bilateral DR. WEBER Family History Father Cancer Social History Smoking and tobacco/nicotine status: former use of tobacco/nicotine Second hand smoke exposure: No Alcohol intake: never Substance/Drug Use: never Adopted: No Caregiver/support person: No Lives independently: Yes Housing: House Marital status: / Data Anesthesia 04/16/25 07:13 04/16/25 09:32 Short CBC 04/16/25 Range/Units 07:13 WBC 15.63 H (3.29-11.43) 10^3/uL Hgb 17.90 H (11.27-16.99) g/dL Hct 51.5 (37-53) % MCV 88.5 (82-101) fl Plt Count 429 H (157-399) 10^3/cmm Neut % (Auto) 83.7 % Neut # (Auto) 13.09 H (1.8-7.7) 10^3/uL BMP 04/16/25 04/16/25 07:13 09:32 Sodium 134 L 132 L Potassium 3.0 L 2.8 L* Chloride 60 L 67 L Carbon Dioxide > 50 H* 49 H* BUN 44 H 44 H Creatinine 1.8 H 1.6 H Glucose 140 H 124 H Calcium 11.3 H 8.9 Cardiac Enzymes 04/16/25 04/16/25 Range/Units 07:13 09:32 Troponin T Baseline 24 H (0-15) ng/L Troponin T 120 Minute 17.65 H (0-15) ng/L Delta Troponin T -6.35 L (0-10) ABS# NT-Pro-B Natriuret Pep 133 H (0-125) pg/mL Liver Function 04/16/25 Range/Units 07:13 Total Bilirubin 0.8 (0.15-1.2) mg/dL AST 22 (0-40) U/L ALT 25 (0-41) U/L Alkaline Phosphatase 90 (40-130) U/L Albumin 4.9 (3.5-5.2) g/dL Urine 04/16/25 Range/Units 09:15 Urine Color Dark yellow A (Yellow) Urine Appearance Cloudy A (CLEAR) Urine pH 7.5 (5-7) Ur Specific [place] 1.018 (1.005-1.030) Urine Protein 2+ A (Negative) Urine Glucose (UA) Negative (Normal) Urine Ketones 2+ H (Negative) Urine Nitrate Negative (Negative) Urine Bilirubin Negative (Negative) Ur Leukocyte Esterase Trace A (Negative) Urine RBC 0-4 H (0-2) /hpf Urine WBC Rare (0-5) /hpf COVID Results 04/16/25 07:22 SARS-CoV-2 (PCR) Negative Coags 04/16/25 07:13 C-Reactive Protein 200.6 H ABG 04/16/25 07:16 Specimen Type Arterial Sample Site Radial, left ABG pH 7.68 H* ABG pCO2 60.0 H ABG pO2 56.7 L ABG HCO3 71.1 H ABG O2 Saturation 92.9 ABG Base Excess 42.0 H A-a O2 Gradient 2.7 L O2 Delivery Device Nc O2 Liters/Min 3.0 Microbiology 04/16/25 07:39 Blood Culture - Preliminary Blood SPECIMEN COLLECTED 04/16/25 07:35 Blood Culture - Preliminary Blood SPECIMEN COLLECTED
[2025-04-16] MEDS: sodium chlor 0.9% + KCl 40 mEq 40 MEQ/1,000 ML BAG 250 MEQ IV ×3 (12:07→22:42)
--- NOTE | 2025-04-16 12:20 | PC.NURSE ---
SURGERY NURSE ARRIVED TO TAKE PT TO PREOP. SURGERY NURSE STOPPED PT IV POTASSIUM INFUSION. THIS NURSE ADVISED SURGERY TO KEEP POTASSIUM RUNNING DUE TO PT HYPOKALEMIA. SURGERY D/C INFUSION. THIS NURSE SENT SECONDARY BAG OF POTASSIUM WITH SURGERY NURSES.
--- NOTE | 2025-04-16 14:08 | ECG_ITS ---
[facility] Date: 2025-04-16 Pat Name: Tommie Bella Department: Room: [facility] Gender: Male Cornetist: : 1955 Requested By: Kinsey Salcedo Order Number: [id number] Barbosa MD: Jaycee Hernandez M.D. Measurements Intervals [place] Rate: 129 P: 0 PA: 0 QRS: 16 QRSD: 101 T: 65 QT: 316 QTc: 463 Interpretive Statements ATRIAL FLUTTER/TACHYCARDIA WITH RAPID VENTRICULAR RESPONSE MARKED ST DEPRESSION, CONSIDER SUBENDOCARDIAL INJURY [0.2+ mV ST DEPRESSION] ACUTE AK INTERPRETATION BASED ON A DEFAULT AGE OF 40 YEARS Compared to ECG 04/16/2025 11:41:57 ST (T wave) deviation now present Sinus rhythm no longer present Electronically Signed On 04-17-2025 19:40:39 CDT by Jaycee Hernandez M.D. [email or web address] [id number]
[2025-04-16] MEDS: amiodarone 50 mg/mL SDV 3 mL 150 MG IVP (14:18)
--- NOTE | 2025-04-16 14:29 | PC.NURSE ---
Code 1354-Code started, compressions started 1356-1mg Epi administered Calcium administered Chest compressors switched 1358- Pulse check-Vfib Shock delivered Compressors switched 1400-pulse check-sinus tach compressions discontinued 1405-labs drawn and EKG performed 1406-100mg lidocaine administered 1414-arterial line Right wrist established 1418-Amiodarone 150mg administered.
--- NOTE | 2025-04-16 14:41 | PC.NURSE ---
CODE BLUE; Pt in OR 3 being prepped for surgery start. Surgical Procedure not started. Pt went into cardiac arrest and Code Blue was called overhead. 1354 CPR initiated 1356 Pulse Check/CPR 1356 Epi IVP, Calcium IVP 1358 Pulse Check/Vfib/Shock/CPR 1359 1mg IVP Epi 1400 Pulse Check/ST/ROSC\ 1403 Artline attempt to left radial 1405 Labs drawn/EKG 1406 100mg Lidocaine admin 1414 Artline to R Radial established/ABG drawn 1418 150mg IVP Amio. Pharmacy called to mix Amio Gtt Surgical procedure paused for later start time, and pt to transfer to ICU 9 for full cardiac workup.
[2025-04-16 14:57] LABS: Hematocrit 40.6 % (37-53); Hemoglobin 14.10 g/dL (11.27-16.99); Mean Corpuscular HGB Conc 34.7 g/dL (30-55); Mean Corpuscular Hemoglobin 30.8 pg (27-33); Mean Corpuscular Volume 88.6 fl (82-101); Nucleated Red Blood Cells % 0 %; Platelet Count 359 10^3/cmm (157-399); Red Blood Count 4.58 10^6/uL (3.85-5.65); White Blood Count 16.42 10^3/uL (3.29-11.43)
--- NOTE | 2025-04-16 15:02 | XRR_ITS ---
PROCEDURE INFORMATION: Exam: XR Chest Exam date and time: 04/16/2025 3:07 PM Age: 70 years old Clinical indication: Device placement; Ett placement (vent status); Additional info: Et tube placement TECHNIQUE: Imaging protocol: Radiologic exam of the chest. Views: 1 view. COMPARISON: CR XR chest 1V portable [id number] 04/16/2025 11:19 AM FINDINGS: Tubes, catheters and devices: Endotracheal tube tip terminates approximately 4.5 cm above the nighat. Nasogastric tube is within the stomach. Lungs: Bibasal atelectasis. Pleural spaces: Bilateral pleural effusions. Heart/Mediastinum: There is no cardiomegaly. Vasculature: There is an IVC filter noted in the visualized upper abdomen. Appears to be a [place] type filter Bones/joints: No acute osseous abnormality XR/XR chest 1V portable [id number] IMPRESSION: 1. Bilateral pleural effusions with bibasal atelectasis. 2. Adequately positioned tubes as described above.
--- NOTE | 2025-04-16 15:14 | P.ANESPOST_ITS ---
Inpatient post-anesthesia follow up: Vital signs: Temperature 99.3 F Pulse Rate 79 Respiratory Rate 14 Blood Pressure 125/60 Pulse Oximetry 98 Oxygen Delivery Me thod Nasal Cannula Oxygen Flow Rate 3 Fraction of Inspir ed Oxygen 40 Anesthesia Procedures Other Information: Pt. induced and intubated RSI, tolerated well experienced some hypotension systolic 50s, phenylephrine gtt initiated BP recovered to 109 systolic, evan hugger applied, arms secured, patient then had episode of bradycardia HR 37, 0.4mg glycopyrulate given, within 1 minute pt. 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 Sweet now present and initiated first round of epinephrine. Code team present see code record. Surgery rescheduled pending cardiac workup. Pt. transported to ICU with VSS on no pressors. Dr. Sweet spoke with patient family member Otf and informed of situation, family member verbalized understanding and expressed appreciation. Will follow case.
[2025-04-16 15:16] LABS: Troponin 5 6HR 17.29 ng/L (0-15)
[2025-04-16 15:17] LABS: Troponin 5 6HR Delta -6.71 ng/L (0-12)
[2025-04-16 16:10] LABS: ABG PCO2 43.5 mmHg (35-45); Alveolar-Arterial Oxygen Gradi 24.0 mmHg (5-10); Arterial Blood Gas Hematocrit 44.6 % (42-52); Blood Gas Operator Identificat BROMA; Blood Gas Sample Type Arterial; Blood Gas Tidal Volume 0.50; Carboxyhemoglobin 1.3 %THgb (0.4-20.1); Glucose Level-ABG 177.0 mg/dL (70-115); HCO3 ABG 58.1 mmol/L (22-26); Ionized Calcium Level - ABG 1.1 mmol/L (1.1-1.4); Methemoglobin 1.1 % (0.4-1.5); Oxygen Saturation ABG 88.0; PEEP 5.0 cmH20; PO2 ABG 44.9 mmHg (80.0-100.0); PO2 FiO2 Ratio Arterial Blood 112; Potassium Level - ABG 2.2 mmol/L (3.5-5.0); Sodium Level - ABG 132.0 mmol/L (131-143)
[2025-04-16 16:13] LABS: ABG PH Result 7.73 (7.35-7.45); Blood Gas Sample Site ART LINE
[2025-04-16] MEDS: AMIODARONE HCL/D5W 900 MG/500 ML BAG 33.33 MG IV (16:18)
[2025-04-16] MEDS: propofol 1,000 MG/100 ML INJ 2.26 MG IV (16:19)
[2025-04-16] MEDS: norepinephrine 4 MG/250 ML BAG 7.5 MG IV (16:19)
[2025-04-16] MEDS: fentaNYL 1,000 MCG/100 ML BAG 2.5 MCG IV (16:19)
--- NOTE | 2025-04-16 16:48 | USCV_ITS ---
Tommie Bella Age: 70 Gender: M : 1955 Exam Date: 04/16/2025 19:51 Ordering Phys: Samson Adler MD Technologist: LIMA [place] [facility] [place]: V.tach arrest on ventilator in ICU-9 BP: 119 / 68 HR: 58 Rhythm: Sinus Technical Quality: MEASUREMENTS (Male / Female) Normal Values 2D ECHO LV Diastolic Diameter PLAX 3.8 cm 4.2 - 5.9 / 3.9 - 5.3 cm IVS Diastolic Thickness 1.3 cm 0.6 - 1.0 / 0.6 - 0.9 cm IVS Systolic Thickness 1.5 cm LVPW Diastolic Thickness 1.3 cm 0.6 - 1.0 / 0.6 - 0.9 cm LVPW Systolic Thickness 1.4 cm LVOT Diameter 1.9 cm LV Ejection Fraction 2D Teich 33.3 % LV Ejection Fraction MOD 4C 19.8 % LV Ejection Fraction MOD 2C 27.4 % LV Ejection Fraction 2C AL 26.8 % LA Diameter 2.5 cm Aorta at Sinotubular Diameter 3.5 cm IVC Diameter 2.7 cm M-MODE LA Ao Ratio MM 0.8 AV Cusp Separation MM 2.0 cm DOPPLER AV Peak Velocity 107.0 cm/s LVOT Peak Velocity 55.0 cm/s AV Area Cont Eq vti 1.3 cm squared AV Area Cont Eq pk 1.4 cm squared MV Peak Velocity 70.0 cm/s MV Area PHT 6.7 cm squared Mitral E to A Ratio 1.5 TR Peak Velocity 203.0 cm/s TR Peak Gradient 16.5 mmHg TV Peak E Velocity 39.0 cm/s PV Peak Velocity 82.0 cm/s FINDINGS Left Ventricle Diffuse hypokinesis of the left ventricle with an ejection fraction of around 25 to 30%. Somewhat dyskinetic septum. Technically limited study because of the poor parasternal and apical windows Right Ventricle Possibly of normal RV size and ejection fraction Right Atrium Possibly of normal size Left Atrium Appears to be mildly dilated IA Septum Appears to be intact Mitral Valve No gross abnormalities noted Aortic Valve Thickened aortic valve with mild aortic regurgitation Tricuspid Valve Mild tricuspid valve regurgitation. Pulmonic Valve Not well-visualized Pericardium No pericardial effusion. Aorta Normal aortic annulus size. IVC Mildly dilated with a poor respiratory variation CONCLUSIONS Diffuse hypokinesis of the left ventricle with an ejection fraction of around 25 to 30%. Somewhat dyskinetic septum. Left atrium of patient to be mildly dilated Thickened aortic valve with mild aortic regurgitation. Mild tricuspid valve regurgitation. Technically limited study because of the poor parasternal and apical windows. Dr Jaycee Hernandez MD FAC (Electronically Signed) Final Date: 16 April 2025 20:47 S
--- NOTE | 2025-04-16 16:55 | XRR_ITS ---
PROCEDURE INFORMATION: Exam: XR Chest Exam date and time: 04/16/2025 4:59 PM Age: 70 years old Clinical indication: Device placement; Other: Central line RT side; Additional info: Central line placement RT side TECHNIQUE: Imaging protocol: Radiologic exam of the chest. Views: 1 view. COMPARISON: CR XR chest 1V portable [id number] 04/16/2025 3:07 PM FINDINGS: Tubes, catheters and devices: Interval placement of a right internal jugular vein central line, the tip terminates in the SVC. Endotracheal tube is approximately 5.5 cm above the nighat. Nasogastric tube is noted within the stomach. Lungs: Bibasal atelectasis. Pleural spaces: Bilateral pleural effusions. Heart/Mediastinum: There is no cardiomegaly. Bones/joints: No acute osseous abnormality. XR/XR chest 1V portable [id number] IMPRESSION: 1. Bilateral pleural effusions with bibasal atelectasis. 2. Interval placement of a right internal jugular vein central line.
[2025-04-16 17:30] LABS: Lactate (Lactic Acid level) 2.8 mmol/L (0.5-2.2)
[2025-04-16 17:32] LABS: ABG PCO2 48.4 mmHg (35-45); Alveolar-Arterial Oxygen Gradi 58.1 mmHg (5-10); Arterial Blood Gas Hematocrit 42.6 % (42-52); Blood Gas Operator Identificat BROMA; Blood Gas Sample Type Arterial; Blood Gas Tidal Volume 0.45; Carboxyhemoglobin 0.7 %THgb (0.4-20.1); Glucose Level-ABG 161.0 mg/dL (70-115); HCO3 ABG 55.2 mmol/L (22-26); Ionized Calcium Level - ABG 1.1 mmol/L (1.1-1.4); Methemoglobin 1.2 % (0.4-1.5); Oxygen Saturation ABG > 99.1; PEEP 5.0 cmH20; PO2 ABG 198.0 mmHg (80.0-100.0); PO2 FiO2 Ratio Arterial Blood 198; Potassium Level - ABG 2.8 mmol/L (3.5-5.0); Sodium Level - ABG 134.0 mmol/L (131-143)
[2025-04-16 17:37] LABS: Alanine Aminotransferase 273 U/L (0-41); Albumin Level 3.4 g/dL (3.5-5.2); Alkaline Phosphatase 65 U/L (40-130); Anion Gap 16.6 (5-19); Aspartate Amino Transferase 254 U/L (0-40); Blood Urea Nitrogen 42 mg/dL (8-23); Calcium 9.8 mg/dL (8.5-10.5); Chloride 70 mmol/L (98-107); Creatinine Clr Calc Pharmacy 18.7739; Globulin 1.7 g/dL (1.3-4.6); Glucose 178 mg/dL (65-115); Magnesium 2.3 mg/dL (1.7-2.3); NT Pro B Type Natriuretic Pept 131 pg/mL (0-125); Osmolality Calculated 287 mOsm/kg (285-295); Sodium 131 mmol/L (136-145); Total Protein 5.1 g/dL (6.6-8.7)
[2025-04-16 17:40] LABS: Troponin(5th) Baseline 193 ng/L (0-15)
[2025-04-16 17:41] LABS: Carbon Dioxide 47 mmol/L (22-29); Potassium 2.6 mmol/L (3.5-5.1)
[2025-04-16 17:44] LABS: ABG PH Result 7.67 (7.35-7.45); Blood Gas Sample Site ART LINE
[2025-04-16] MEDS: sodium chlor 0.9% + KCl 40 mEq 40 MEQ/1,000 ML BAG 500 MEQ IV ×2 (18:38→20:44)
[2025-04-16 19:20] LABS: Troponin 5 2HR 278.3 ng/L (0-15)
[2025-04-16 19:21] LABS: Troponin 5 2HR Delta 85.3 ABS# (0-10)
--- NOTE | 2025-04-16 19:52 | PM.CONSULT ---
Providers/Reason For Consult Consulting Physician/Specialty*: Cara Hernandez MD/cardiology Reason for Consult*: Patient with V-fib arrest during anesthesia induction, currently resuscitated, consulted for cardiac evaluation and recommendations Requesting Physician: Dr. Adler Attending Physician: Jacinto Wan MD Primary Care Provider: Chato Marquez DO History of Present Illness History of Present Illness Tommie Bella is a 70 year old male who was taken to the OR today with a diagnosis of small bowel obstruction and incarcerated inguinal hernia. Apparently during the induction of anesthesia, he went into hypotension, bradycardia/pulseless V. tach-successfully resuscitated. Currently the patient is in the ICU intubated and sedated. Cardiology consult is requested for further cardiac evaluation recommendations This patient apparently has been having some abdominal pain, nausea and vomiting for the last 4 days or so. Because of worsening of the symptoms, he decided to come to the hospital. In the emergency room, he was found to have a large left inguinal hernia which was not reducible. CT of the abdomen pelvis revealed high-grade small bowel obstruction with incarcerated left inguinal hernia. He was taken to the OR urgently. He was intubated by RSI. Following this, he developed hypotension followed by bradycardia. He was given glycopyrrolate and subsequently admitted to recurrent nonsustained ventricular tachycardia followed by sustained V. tach. He had 3 rounds of high-quality CPR and 2 doses of epinephrine injections?. Currently he is on IV fluid, IV Levophed and on electrolyte supplement. Apparently he was found to be hypokalemia with a potassium level of 2.6 hypochloremia with a chloride level in the 60s, alkalotic with a pH of 7.67, features of dehydration, acute kidney injury and hypoxemia(pO2 of 91 with 3 L of oxygen by nasal cannula) in the emergency room. Patient has no previous history for any coronary disease, myocardial infarction or congestive heart failure. He has history of chronic back pain and high blood pressure. The information is mostly from his medical records and from the medical staff.. No family numbers are available for information. Patient is intubated and sedated. Review of Systems Narrative: CONSTITUTIONAL: No fever or chills. EYES: No documented visual disturbances ENT: No documented abnormalities CARDIOVASCULAR: As mentioned above. RESPIRATORY: Patient was somewhat hypoxemic GASTROINTESTINAL: Nausea and vomiting as mentioned above GENITOURINARY: No dysuria or hematuria. INTEGUMENTARY: No skin rashes NEURO: No documented neurological disorders PSYCHIATRIC: No history of psychosis or major depression. HEMATOLOGIC: No bleeding disorders or significant anemia. ENDOCRINE: No history of diabetes or hypothyroidism MUSCULOSKELETAL: History of hip surgery ALLERGY/IMMUNOLOGY: As mentioned above. Medications/Allergies Home Medications ?Medication ?Instructions ?Recorded ?Confirmed ?Last Taken ?Type Kratom 4 - 5 g PO BID 04/16/25 04/16/25 04/15/25 History acetaminophen 500 mg tablet 100 mg PO QID PRN Fever Or Pain 04/16/25 04/16/25 Unknown History (Tylenol Extra Strength) cholecalciferol (vitamin D3) 125 125 mcg PO DAILY 04/16/25 04/16/25 04/09/25 History mcg (5,000 unit) tablet (Vitamin D3) liver extract 1 tab PO DAILY 04/16/25 04/16/25 04/08/25 History magnesium glycinate 100 mg PO DAILY 04/16/25 04/16/25 04/09/25 History milk thistle 150 mg capsule 150 mg PO BID 04/16/25 04/16/25 04/09/25 History saw palmetto 500 mg capsule 500 mg PO BID 04/16/25 04/16/25 04/10/25 History vitamin K2 90 mcg capsule 90 mcg PO DAILY 04/16/25 04/16/25 04/09/25 History Allergies Allergy/AdvReac Type Severity Reaction Status Date / Time clonidine Allergy Unknown Verified 11/02/22 09:38 codeine Allergy ADR-Nausea Verified 11/02/22 09:38 haloperidol (From Haldol) Allergy ADR-Anxiety Verified 11/02/22 09:38 meperidine (From Demerol) Allergy ALGY-Anaphy Verified 11/02/22 09:38 laxis pentazocine (From Talwin) Allergy ADR-Nausea Verified 11/02/22 09:38 tramadol Allergy ADR-Nausea Verified 11/02/22 09:38 Current Medications Generic Name Dose Route Start Last Admin Trade Name Freq PRN Reason Stop Dose Admin Potassium Chloride/Sodium Chloride 40 meq in 1,000 mls @ 500 mls/hr 04/16/25 11:45 04/16/25 16:20 Sodium Chlor 0.9% + Kcl 40 Meq IV 04/17/25 01:36 250 mls/hr .Q2H MICHELLE Administration AMIODARONE HCL/D5W 900 mg in 500 mls @ 0 mls/hr 04/16/25 14:30 04/16/25 16:18 Amiodarone 900 Mg/500 Ml-D5w IV 1 mg/min .Q0M MICHELLE 33.33 mls/hr Protocol Administration Per Protocol Propofol 1,000 mg in 100 mls @ 0 mls/hr 04/16/25 15:00 04/16/25 17:05 Diprivan IV 35 mcg/kg/min .Q0M MICHELLE 15.81 mls/hr Protocol Titration Per Protocol Fentanyl 1,000 mcg in 100 mls @ 0 mls/hr 04/16/25 15:00 04/16/25 18:50 Sublimaze IV 150 mcg/hr .Q0M MICHELLE 15 mls/hr Protocol Titration Per Protocol Norepinephrine Bitartrate 4 mg in 250 mls @ 0 mls/hr 04/16/25 15:00 04/16/25 19:09 Levophed IV 16 mcg/min .Q0M MICHELLE 60 mls/hr Protocol Titration Per Protocol Potassium Chloride/Sodium Chloride 40 meq in 1,000 mls @ 500 mls/hr 04/16/25 19:00 04/16/25 18:38 Sodium Chlor 0.9% + Kcl 40 Meq IV 04/16/25 22:59 500 mls/hr .Q2H MICHELLE Administration PFSH Acute PFSH: Medical History Intractable nausea and vomiting Facet joint disease DDD (degenerative disc disease), lumbar Chronic thoracic spine pain Foraminal stenosis of lumbar region Chronic lumbosacral pain Postlaminectomy syndrome of lumbar region Encounter for long-term use of opiate analgesic Hip pain, bilateral DJD (degenerative joint disease), lumbar Surgical History S/P lumbar fusion Status post total hip replacement, bilateral DR. WEBER Family History Father Cancer Social History Smoking and tobacco/nicotine status: former use of tobacco/nicotine Second hand smoke exposure: No Alcohol intake: never Substance/Drug Use: never Adopted: No Caregiver/support person: No Lives independently: Yes Housing: House Marital status: / Vitals/I&O/Wt Last Vital Signs Temp 98.5 F 04/16/25 16:00 Pulse 73 04/16/25 17:55 Resp 12 04/16/25 17:40 BP 97/63 04/16/25 17:55 Pulse Ox 98 04/16/25 17:55 O2 Del Method Mechanical Ventilation 04/16/25 15:23 O2 Flow Rate 3 04/16/25 12:53 FiO2 100 04/16/25 17:40 04/16/25 04/16/25 04/16/25 06:59 14:59 22:59 Intake Total 4441.684 / 4441.684 Output Total 900 / 900 Balance 3541.684 / 3541.684 Weight last 48 hrs Weight 74 lb 8 oz Weight 166 lb Physical Exam Narrative: GENERAL: The patient is intubated and sedated HEENT: No significant pallor, icterus or lymphadenopathy.Oral cavity: There are no mucous membrane lesions. NECK: Trachea appears to be central. No masses noted. No JVD or thyromegaly appreciated. RESPIRATORY: Chest is symmetrical. Breath sounds are heard bilaterally BREASTS: Deferred. HEART: The heart sounds are normal. No S3 or S4. No significant murmurs. No pericardial rub ABDOMEN: No vessel pulsations or distention. Diffuse redness in the left lower quadrant : Deferred. RECTAL: Deferred. LYMPHATIC: No lymphadenopathy noted in the neck. EXTREMITIES: No edema or cyanosis. No clubbing. MUSCULOSKELETAL: No acute joint deformities or swelling SKIN: There are no significant rashes or ecchymosis NEUROPSYCHIATRIC: Intubated and sedated Urinary Catheter Management: Coyle Latex: Cath Placed During This Visit: yes Reason for Continuing Indwelling Catheter: Accurate Measurement of Urinary Output in Critically Ill Patients Urinary Catheter Date of Insertion: 04/16/25 Urinary Catheter Time of Insertion: 13:47 Data 04/16/25 14:04 04/16/25 16:16 Other Labs: Laboratory Last Values WBC 16.42 10^3/uL (3.29-11.43) H 04/16/25 14:04 RBC 4.58 10^6/uL (3.85-5.65) 04/16/25 14:04 Hgb 14.10 g/dL (11.27-16.99) 04/16/25 14:04 Hct 40.6 % (37-53) 04/16/25 14:04 MCV 88.6 fl (82-101) 04/16/25 14:04 MCH 30.8 pg (27-33) 04/16/25 14:04 MCHC 34.7 g/dL (30-55) 04/16/25 14:04 RDW 12.9 % (12.1-15.1) 04/16/25 14:04 Plt Count 359 10^3/cmm (157-399) 04/16/25 14:04 MPV 12.0 fL (7.4-10.4) H 04/16/25 14:04 Neut % (Auto) 69.6 % 04/16/25 14:04 Lymph % (Auto) 14.9 % 04/16/25 14:04 [place] % (Auto) 14.7 % 04/16/25 14:04 Eos % (Auto) 0.1 % 04/16/25 14:04 Baso % (Auto) 0.1 % 04/16/25 14:04 Neut # (Auto) 11.43 10^3/uL (1.8-7.7) H 04/16/25 14:04 Lymph # (Auto) 2.4 10^3/uL (0.8-4.8) 04/16/25 14:04 [place] # (Auto) 2.4 10^3/uL (0.2-0.9) H 04/16/25 14:04 Eos # (Auto) 0.0 10^3/uL (0.0-0.8) 04/16/25 14:04 Baso # (Auto) 0.0 10^3/uL (0.0-0.1) 04/16/25 14:04 Nucleated RBC % (auto) 0 % 04/16/25 14:04 Nucleated RBCs # 0.0 /100WBC 04/16/25 14:04 Specimen Type Arterial 04/16/25 17:20 Sample Site Art line 04/16/25 17:20 ABG pH 7.67 (7.35-7.45) H* 04/16/25 17:20 ABG pCO2 48.4 mmHg (35-45) H 04/16/25 17:20 ABG pO2 198.0 mmHg (80.0-100.0) H 04/16/25 17:20 ABG PO2/FiO2 Ratio 198 04/16/25 17:20 ABG HCO3 55.2 mmol/L (22-26) H 04/16/25 17:20 ABG O2 Saturation > 99.1 04/16/25 17:20 ABG Base Excess Not Reportable 04/16/25 17:20 Malcolm Test N/a 04/16/25 17:20 A-a O2 Gradient 58.1 mmHg (5-10) H 04/16/25 17:20 Hematocrit 42.6 % (42-52) 04/16/25 17:20 Hgb O2 Saturation 98.1 % (95-100) 04/16/25 17:20 Carboxyhemoglobin 0.7 %THgb (0.4-20.1) 04/16/25 17:20 Methemoglobin 1.2 % (0.4-1.5) 04/16/25 17:20 Total Hemoglobin 13.9 g/dL (14-18) L 04/16/25 17:20 Sodium 134.0 mmol/L (131-143) 04/16/25 17:20 Potassium 2.8 mmol/L (3.5-5.0) L 04/16/25 17:20 Glucose 161.0 mg/dL (70-115) H 04/16/25 17:20 Ionized Calcium 1.1 mmol/L (1.1-1.4) 04/16/25 17:20 O2 Delivery Device Vent 04/16/25 17:20 O2 Liters/Min 3.0 % 04/16/25 07:16 FiO2 100.0 % 04/16/25 17:20 Tidal Volume 0.45 04/16/25 17:20 PEEP 5.0 cmH20 04/16/25 17:20 Criminal Lawyer ID Broma 04/16/25 17:20 Sodium 131 mmol/L (136-145) L 04/16/25 16:16 Potassium 2.6 mmol/L (3.5-5.1) L* 04/16/25 16:16 Chloride 70 mmol/L (98-107) L 04/16/25 16:16 Carbon Dioxide 47 mmol/L (22-29) H* 04/16/25 16:16 Anion Gap 16.6 (5-19) 04/16/25 16:16 BUN 42 mg/dL (8-23) H 04/16/25 16:16 Creatinine 1.7 mg/dL (0.7-1.2) H 04/16/25 16:16 GFR Calculation Not Reportable 04/16/25 16:16 Glucose 178 mg/dL (65-115) H 04/16/25 16:16 Calculated Osmolality 287 mOsm/kg (285-295) 04/16/25 16:16 Lactic Acid 3.1 mmol/L (0.5-2.2) H 04/16/25 07:13 Lactic Acid (Sepsis) 1.6 mmol/L (0.5-2.2) 04/16/25 10: Lactate 2.8 mmol/L (0.5-2.2) H 04/16/25 16:16 Calcium 9.8 mg/dL (8.5-10.5) 04/16/25 16:16 Phosphorus 4.1 mg/dL (2.5-4.5) 04/16/25 16:16 Magnesium 2.3 mg/dL (1.7-2.3) 04/16/25 16:16 Total Bilirubin 1.1 mg/dL (0.15-1.2) 04/16/25 16:16 AST 254 U/L (0-40) H 04/16/25 16:16 ALT 273 U/L (0-41) H 04/16/25 16:16 Alkaline Phosphatase 65 U/L (40-130) 04/16/25 16:16 Troponin T 5th Gen ng/L Cancelled 04/16/25 14:04 Troponin T Baseline 193 ng/L (0-15) H* 04/16/25 16:16 Troponin T 120 Minute 278.3 ng/L (0-15) H 04/16/25 18:16 Delta Troponin T 85.3 ABS# (0-10) H* 04/16/25 18:16 Troponin T Hi Sens 6Hr 17.29 ng/L (0-15) H 04/16/25 14:04 Troponin T Hi Sens 6Hr Delta -6.71 ng/L (0-12) L 04/16/25 14:04 C-Reactive Protein 200.6 mg/L (0.0-4.9) H 04/16/25 07:13 NT-Pro-B Natriuret Pep 131 pg/mL (0-125) H 04/16/25 16:16 Total Protein 5.1 g/dL (6.6-8.7) L D 04/16/25 16:16 Albumin 3.4 g/dL (3.5-5.2) L 04/16/25 16:16 Globulin 1.7 g/dL (1.3-4.6) 04/16/25 16:16 Lipase 88 U/L (13-60) H 04/16/25 07:13 Urine Color Dark yellow (Yellow) A 04/16/25 09:15 Urine Appearance Cloudy (CLEAR) A 04/16/25 09:15 Urine pH 7.5 (5-7) 04/16/25 09:15 Ur Specific [place] 1.018 (1.005-1.030) 04/16/25 09:15 Urine Protein 2+ (Negative) A 04/16/25 09:15 Urine Glucose (UA) Negative (Normal) 04/16/25 09:15 Urine Ketones 2+ (Negative) H 04/16/25 09:15 Urine Blood Trace (Negative) A 04/16/25 09:15 Urine Nitrate Negative (Negative) 04/16/25 09:15 Urine Bilirubin Negative (Negative) 04/16/25 09:15 Urine Urobilinogen 1.0 mg/dL (Negative) 04/16/25 09:15 Ur Leukocyte Esterase Trace (Negative) A 04/16/25 09:15 Urine RBC 0-4 /hpf (0-2) H 04/16/25 09:15 Urine WBC Rare /hpf (0-5) 04/16/25 09:15 Ur Squamous Epith Cells Rare /hpf (0-5) 04/16/25 09:15 Amorphous Sediment Not Reportable 04/16/25 09:15 Urine Bacteria 1+ /hpf (NONE) H 04/16/25 09:15 Hyaline Casts 0-4 /lpf H 04/16/25 09:15 Urine Opiates Screen Negative ng/mL (Negative) 04/16/25 09:15 Ur Barbiturates Screen Negative ng/mL (Negative) 04/16/25 09:15 Ur Phencyclidine Scrn Negative ng/mL (Negative) 04/16/25 09:15 Ur Amphetamines Screen Negative ng/mL (Negative) 04/16/25 09:15 U Benzodiazepines Scrn Negative ng/mL (Negative) 04/16/25 09:15 Urine Cocaine Screen Negative ng/mL (Negative) 04/16/25 09:15 U Marijuana (THC) Screen Negative ng/mL (Negative) 04/16/25 09:15 Influenza A (PCR) Negative (Negative) 04/16/25 07:22 Influenza Type B (PCR) Negative (Negative) 04/16/25 07:22 RSV (PCR) Negative (Negative) 04/16/25 07:22 SARS-CoV-2 (PCR) Negative (Negative) 04/16/25 07:22 Micro: Microbiology 04/16/25 07:39 Blood Culture - Preliminary Blood SPECIMEN COLLECTED 04/16/25 07:35 Blood Culture - Preliminary Blood SPECIMEN COLLECTED EKG 1: My Interpretation: The initial EKG showed a sinus rhythm with a heart rate of [address] changes. EKG 2: My Interpretation: The EKG following the cardiac event showed us tachycardia possible atrial flutter with rapid ventricular rate, heart rate of 129 bpm. [address] depressions in lead V3 to V6. Nonspecific ST changes in the other leads. A&P Assessment and plan 1. Malignant ventricular arrhythmias: The etiology of the ventricular arrhythmia is not clear at this time. Coronary ischemia, electrolyte/metabolic abnormalities, medications etc. are possible contributing factors. 2. Elevated troponin: The troponin she was found to be elevated after the cardiac event. The 2-hour delta was around 80 after the cardiac event. This may suggest a non-ST elevation myocardial infarction. But because of the resuscitative measures, this cannot be ascertained 3. Abnormal EKG: For history of anterolateral wall ischemia. 4. Other specified hypotension: Ischemia, LV dysfunction, electrolyte/metabolic abnormalities etc. are contributing factor's. 5. Hypokalemia: This is being corrected. 6. Metabolic alkalosis: Patient's nausea and vomiting could be the contributing factor. This is being corrected 7. Hypochloremia: As mentioned above 8. Acute kidney injury: Nausea and vomiting causing dehydration is a likely possibility Plan: Correct electrolyte abnormalities. Stat echocardiogram. Repeat EKG Patient is on amiodarone which may be continued. After reviewing the above, further recommendations will be made. Thank you for the opportunity well this patient make this recommendation PDMP PDMP Reviewed: Not Reviewed Coding Level of Care Code 11922 Diagnoses Malignant ventricular arrhythmias I49.9 Elevated troponin R79.89 Abnormal EKG R94.31 Other specified hypotension I95.89 Hypotension type: other hypotension type Hypokalemia E87.6 Metabolic alkalosis E87.3 Hypochloremia E87.8 Acute kidney injury N17.9
[2025-04-16] MEDS: vasopressin 40 UNIT/100 ML PREMIX IV (20:21)
[2025-04-16] MEDS: propofol 1,000 MG/100 ML INJ 15.81 MG IV (20:22)
--- NOTE | 2025-04-16 20:49 | ECG_ITS ---
[facility]: 2025-[facility]16 Pat Name: Tommie Bella Department: Room: [facility] Gender: Male It Admin: : 1955 Requested By: Jaycee Hernandez Order Number: [id number] Chelsey MD: Jaycee Hernandez M.D. Measurements Intervals [place] Rate: 60 P: 25 AK: 208 QRS: 52 QRSD: 102 T: 70 QT: 432 QTc: 432 Interpretive Statements SINUS RHYTHM SEPTAL MYOCARDIAL INFARCTION , OF INDETERMINATE AGE [40+ ms Q WAVE IN V1/V2] Compared to ECG 04/16/2025 14:08:36 Myocardial infarct finding now present Atrial flutter no longer present ST (T wave) deviation no longer present Electronically Signed On 04-17-2025 19:15:36 CDT by Jaycee Hernandez M.D. [email or web address]
[2025-04-16] MEDS: norepinephrine 4 MG/250 ML BAG 75 MG IV (21:36)
[2025-04-16] MEDS: FUROsemide 10 mg/mL SDV 2mL 20 MG IVP (21:45)
[2025-04-16 22:42] LABS: Anion Gap 16.3 (5-19); Blood Urea Nitrogen 37 mg/dL (8-23); Calcium 8.7 mg/dL (8.5-10.5); Carbon Dioxide 38 mmol/L (22-29); Chloride 89 mmol/L (98-107); Creatinine Clr Calc Pharmacy 41.5444; Glucose 149 mg/dL (65-115); Osmolality Calculated 299 mOsm/kg (285-295); Potassium 4.3 mmol/L (3.5-5.1); Sodium 139 mmol/L (136-145)
--- NOTE | 2025-04-16 22:42 | PM.CONSULT ---
Providers/Reason For Consult Consulting Physician/Specialty*: ESRD Reason for Consult*: metabolic alkalosis Attending Physician: Jacinto Wan MD Primary Care Provider: Chato Marquez DO History of Present Illness History of Present Illness Tommie Bella is a 70 year old male Patient is a 70-year-old male patient is a 70-year-old male with no known medical problems presented to the hospital due to nausea vomiting and left lower quadrant abdominal pain and was found to have incarcerated hernia, with high-grade small bowel obstruction. On presentation lab data significant for elevated white count of 15.6 thousand, hemoglobin sodium 132 potassium 2.8 CO2 49 BUN 44 and creatinine 1.4. Patient received IV fluids resuscitation with normal saline. Patient was taken to the OR but he developed hypotension and bradycardia and had cardiac arrest with ROSC. Patient currently mated to the ICU intubated, receiving normal saline bolus x 3 potassium is being repleted. ABG showed pH of 7.67 Review of Systems Narrative: uable to obtain Medications/Allergies Home Medications ?Medication ?Instructions ?Recorded ?Confirmed ?Last Taken ?Type Kratom 4 - 5 g PO BID 04/16/25 04/16/25 04/15/25 History acetaminophen 500 mg tablet 100 mg PO QID PRN Fever Or Pain 04/16/25 04/16/25 Unknown History (Tylenol Extra Strength) cholecalciferol (vitamin D3) 125 125 mcg PO DAILY 04/16/25 04/16/25 04/09/25 History mcg (5,000 unit) tablet (Vitamin D3) liver extract 1 tab PO DAILY 04/16/25 04/16/25 04/08/25 History magnesium glycinate 100 mg PO DAILY 04/16/25 04/16/25 04/09/25 History milk thistle 150 mg capsule 150 mg PO BID 04/16/25 04/16/25 04/09/25 History saw palmetto 500 mg capsule 500 mg PO BID 04/16/25 04/16/25 04/10/25 History vitamin K2 90 mcg capsule 90 mcg PO DAILY 04/16/25 04/16/25 04/09/25 History Allergies Allergy/AdvReac Type Severity Reaction Status Date / Time clonidine Allergy Unknown Verified 11/02/22 09:38 codeine Allergy ADR-Nausea Verified 11/02/22 09:38 haloperidol (From Haldol) Allergy ADR-Anxiety Verified 11/02/22 09:38 meperidine (From Demerol) Allergy ALGY-Anaphy Verified 11/02/22 09:38 laxis pentazocine (From Talwin) Allergy ADR-Nausea Verified 11/02/22 09:38 tramadol Allergy ADR-Nausea Verified 11/02/22 09:38 Current Medications Generic Name Dose Route Start Last Admin Trade Name Freq PRN Reason Stop Dose Admin Acetazolamide 500 mg 04/16/25 19:27 04/16/25 20:11 Acetazolamide 250 Mg Tablet OG-TUBE 500 mg DAILY MICHELLE Administration AMIODARONE HCL/D5W 900 mg in 500 mls @ 0 mls/hr 04/16/25 14:30 04/16/25 21:11 Amiodarone 900 Mg/500 Ml-D5w IV 0.5 mg/min .Q0M MICHELLE 16.67 mls/hr Protocol Titration Per Protocol Propofol 1,000 mg in 100 mls @ 0 mls/hr 04/16/25 15:00 04/16/25 22:28 Diprivan IV 30 mcg/kg/min .Q0M MICHELLE 13.55 mls/hr Protocol Titration Per Protocol Fentanyl 1,000 mcg in 100 mls @ 0 mls/hr 04/16/25 15:00 04/16/25 21:42 Sublimaze IV 125 mcg/hr .Q0M MICHELLE 12.5 mls/hr Protocol Titration Per Protocol Norepinephrine Bitartrate 4 mg in 250 mls @ 0 mls/hr 04/16/25 15:00 04/16/25 21:36 Levophed IV 20 mcg/min .Q0M MICHELLE 75 mls/hr Protocol Administration Per Protocol Potassium Chloride/Sodium Chloride 40 meq in 1,000 mls @ 500 mls/hr 04/16/25 19:00 04/16/25 20:44 Sodium Chlor 0.9% + Kcl 40 Meq IV 04/16/25 22:59 500 mls/hr .Q2H MICHELLE Administration Vasopressin 40 unit in 100 mls @ 0 mls/hr 04/16/25 20:15 04/16/25 21:36 Vasostrict IV 0.03 unit/min .Q0M MICHELLE 4.5 mls/hr Protocol Titration Per Protocol PFSH Acute PFSH: Medical History (Updated 04/16/25 @ 20:37 by Jaycee Hernandez MD) Intractable nausea and vomiting Facet joint disease DDD (degenerative disc disease), lumbar Chronic thoracic spine pain Foraminal stenosis of lumbar region Chronic lumbosacral pain Postlaminectomy syndrome of lumbar region Encounter for long-term use of opiate analgesic Hip pain, bilateral DJD (degenerative joint disease), lumbar Surgical History S/P lumbar fusion Status post total hip replacement, bilateral DR. WEBER Family History Father Cancer Social History Smoking and tobacco/nicotine status: former use of tobacco/nicotine Second hand smoke exposure: No Alcohol intake: never Substance/Drug Use: never Adopted: No Caregiver/support person: No Lives independently: Yes Housing: House Marital status: / Vitals/I&O/Wt Last Vital Signs Temp 98.5 F 04/16/25 16:00 Pulse 73 04/16/25 17:55 Resp 10 L 04/16/25 21:00 BP 97/63 04/16/25 17:55 Pulse Ox 98 04/16/25 21:00 O2 Del Method Mechanical Ventilation 04/16/25 15:23 O2 Flow Rate 3 04/16/25 12:53 FiO2 60 04/16/25 21:00 04/16/25 04/16/25 04/16/25 06:59 14:59 22:59 Intake Total 7008.030 / 7008.030 Output Total 900 / 900 Balance 6108.030 / 6108.030 Weight last 48 hrs Weight 74 kg Weight 33.793 kg Weight 75.296 kg Physical Exam Narrative: intubated , sedated Urinary Catheter Management: Coyle Latex: Cath Placed During This Visit: yes Reason for Continuing Indwelling Catheter: Accurate Measurement of Urinary Output in Critically Ill Patients Urinary Catheter Date of Insertion: 04/16/25 Urinary Catheter Time of Insertion: 13:47 Data 04/16/25 14:04 04/16/25 16:16 Micro: Microbiology 04/16/25 07:39 Blood Culture - Preliminary Blood SPECIMEN COLLECTED 04/16/25 07:35 Blood Culture - Preliminary Blood SPECIMEN COLLECTED A&P Assessment and plan 1. Metabolic alkalosis: Plan: 1. Chloride responsive metabolic alkalosis: Due to GI losses from f nausea and recurrent vomiting in the setting of bowel obstruction -Agree with aggressive normal saline infusion as boluses, BMP every 4 hours, can give a dose of acetazolamide - Metabolic alkalosis should respond to volume resuscitation with normal saline, follow repeat labs 2. Status post cardiac arrest with ventricular arrhythmias, cardiology following 3. Severe hypokalemia, replete aggressively 4. KOLBY: Due to volume depletion, monitor 5,. Small bowel obstruction with incarcerated inguinal hernia Patient evaluated using audiovisual cart. Time spent 40 minutes. PDMP PDMP Reviewed: Not Reviewed Coding Level of Care Code Acute Code for Chg Fwd Diagnoses Metabolic alkalosis E87.3
[2025-04-16] MEDS: piperacillin-tazobactam 3.375 GM in sodium chloride 0.9% (plus) 50 ML IV (23:13)
[2025-04-17] VITALS: BP 109/62; PULSE 65
[2025-04-17] MEDS: fentaNYL 1,000 MCG/100 ML BAG 12.5 MCG IV (00:14)
[2025-04-17 00:15] VITALS: BP 124/72; PULSE 64
[2025-04-17 00:30] VITALS: BP 128/77; PULSE 58
[2025-04-17 00:45] VITALS: BP 108/65
--- NOTE | 2025-04-17 01:29 | PC.NURSE ---
Addendum entered by Beverly Mattson RN 04/17/25 01:33: Witnessed propofol waste with LAYLA Gunn. Original Note: Wasted 20 ml of propofol. Witnessed by LAYLA Paul.
--- NOTE | 2025-04-17 01:30 | PC.NURSE ---
Bed at [facility] obtained at 2350 from [facility] in [facility] transfer center. Accepting physician is Dr Davis. Report called to [facility] ICU 3E room 3314 to Yessenia Johns at 0000. [employer] crew left with patient at approximately 0130, 1 bottle of propofol sent with LAYLA Oliver.
[2025-04-17] MEDS: norepinephrine 4 MG/250 ML BAG 60 MG IV (01:36)
[2025-04-17 01:38] VITALS: BP 128/77; PULSE 67; O2SAT 96
--- NOTE | 2025-04-17 02:49 | PM.TDS ---
Transfer Summary Providers Date of Admission: 04/16/25 10:36 Date of Discharge/Transfer: 04/17/25 Attending Provider at Admission: Jacinto Wan MD Attending Provider at Transfer: Jacinto Wan MD Primary Care Provider: Chato Marquez DO Transfer Plans: Anticipated date of transfer: 04/17/25. Diagnoses at Discharge Discharge Diagnosis 1. Metabolic alkalosis: Reason for Visit Reason for Visit n/v x 4 days Brief History: Tommie Bella is a 70 year old male with 4-5 day history of N/V and had BM today. No F/C/S. No abdominal surgeries but did have pain pump in [place] for chronic back pain but removed. He has had several back surgeries for pain. He is not on strong blood thinners. CT showing what appears to be incarcerated left inguinal hernia Hospital Course Hospital Course With finding of metabolic abnormality with metabolic alkalosis, pH of 7.68, bicarb over 50, hypochloremia, mild hyponatremia, IV fluid was initiated, potassium supplementation was requested for hypokalemia. He was given a dose of meropenem and linezolid. NG tube and antiemetics requested. Preparations made for exploratory laparotomy. Prior to procedure start during anesthesia induction CODE BLUE was called with cardiac arrest with ventricular tachycardia. Cardiopulmonary resuscitation for 6 minutes with ROSC achieved, with additional 2 episodes of less than 2 seconds of ventricular tachycardia runs. Started on amiodarone. Moved to intensive care unit, requiring pressor Levophed up to 20 mcg/min and vasopressin 0.02. Initial troponin 24, postcardiac arrest troponin at baseline 193 2-hour troponin 278. Echocardiogram obtained. Assessed by cardiology. Echocardiogram with noted ejection fraction 25 to 30%, diffuse LV hypokinesis, some septal dyskinesia. Other minor findings. Consideration given to further assessment with coronary angiography, but on additional cardiology evaluation, repeat EKG, cardiac ischemia thought to be less likely to be the cause of his shock with significant risk of bleeding in case of intervention and anticoagulation, risk to kidney and more likely due to sepsis, bowel ischemia. Cardiovascular support device not advised at current time. Antibiotic coverage continue with Zosyn and consideration given to further operative treatment, however, with recurrent ventricular tachycardia, shock, low ejection fraction, concern by surgery regarding need of higher level facility due to elevated risk of intraoperative deterioration, consideration of further cardiac options, also high chance of renal failure and need of CRRT, considered and discussed with family and requested assistance with transfer to higher level care facility in [place] (family lives much closer to [place] than [place]) on discussion of options with the other option being more conservative approach and possibly conversion to comfort measures. Case discussed with general surgery, cardiology and [place] attorney at [facility] where patient is kindly accepted for further assessment and care. Physical Exam Urinary Catheter Management: Coyle Latex: Cath Placed During This Visit: yes Reason for Continuing Indwelling Catheter: Accurate Measurement of Urinary Output in Critically Ill Patients Urinary Catheter Date of Insertion: 04/16/25 Urinary Catheter Time of Insertion: 13:47 TS Data Studies Completed and Pending Pending at discharge Category Date Time Status BMP [Basic Metabolic Panel] Q4H Lab 04/16/25 23:14 Ordered Blood Culture Stat Lab 04/16/25 07:39 Results Troponin(5th) 6 hour. Timed Lab 04/16/25 22:16 Ordered Completed Studies During Hospitalization Category Date Time Status CT abdomen pelvis wo con [id number] Stat Cat Scan 04/16/25 08:06 Completed CXRP [XR chest 1V portable [id number]] Stat Exams 04/16/25 15:02 Completed XR acute abdomen series [id number] Stat Exams 04/16/25 07:12 Completed XR chest 1V portable [id number] Routine Exams 04/16/25 11:14 Completed XR chest 1V portable [id number] Stat Exams 04/16/25 16:55 Completed CV. echo complete* [id number] Routine Ultrasound 04/16/25 16:48 Completed Laboratory Last Values WBC 16.42 10^3/uL (3.29-11.43) H 04/16/25 14:04 RBC 4.58 10^6/uL (3.85-5.65) 04/16/25 14:04 Hgb 14.10 g/dL (11.27-16.99) 04/16/25 14:04 Hct 40.6 % (37-53) 04/16/25 14:04 MCV 88.6 fl (82-101) 04/16/25 14:04 MCH 30.8 pg (27-33) 04/16/25 14:04 MCHC 34.7 g/dL (30-55) 04/16/25 14:04 RDW 12.9 % (12.1-15.1) 04/16/25 14:04 Plt Count 359 10^3/cmm (157-399) 04/16/25 14:04 MPV 12.0 fL (7.4-10.4) H 04/16/25 14:04 Neut % (Auto) 69.6 % 04/16/25 14:04 Lymph % (Auto) 14.9 % 04/16/25 14:04 [place] % (Auto) 14.7 % 04/16/25 14:04 Eos % (Auto) 0.1 % 04/16/25 14:04 Baso % (Auto) 0.1 % 04/16/25 14:04 Neut # (Auto) 11.43 10^3/uL (1.8-7.7) H 04/16/25 14:04 Lymph # (Auto) 2.4 10^3/uL (0.8-4.8) 04/16/25 14:04 [place] # (Auto) 2.4 10^3/uL (0.2-0.9) H 04/16/25 14:04 Eos # (Auto) 0.0 10^3/uL (0.0-0.8) 04/16/25 14:04 Baso # (Auto) 0.0 10^3/uL (0.0-0.1) 04/16/25 14:04 Nucleated RBC % (auto) 0 % 04/16/25 14:04 Nucleated RBCs # 0.0 /100WBC 04/16/25 14:04 Specimen Type Arterial 04/16/25 17:20 Sample Site Art line 04/16/25 17:20 ABG pH 7.67 (7.35-7.45) H* 04/16/25 17:20 ABG pCO2 48.4 mmHg (35-45) H 04/16/25 17:20 ABG pO2 198.0 mmHg (80.0-100.0) H 04/16/25 17:20 ABG PO2/FiO2 Ratio 198 04/16/25 17:20 ABG HCO3 55.2 mmol/L (22-26) H 04/16/25 17:20 ABG O2 Saturation > 99.1 04/16/25 17:20 ABG Base Excess Not Reportable 04/16/25 17:20 Malcolm Test N/a 04/16/25 17:20 A-a O2 Gradient 58.1 mmHg (5-10) H 04/16/25 17:20 Hematocrit 42.6 % (42-52) 04/16/25 17:20 Hgb O2 Saturation 98.1 % (95-100) 04/16/25 17:20 Carboxyhemoglobin 0.7 %THgb (0.4-20.1) 04/16/25 17:20 Methemoglobin 1.2 % (0.4-1.5) 04/16/25 17:20 Total Hemoglobin 13.9 g/dL (14-18) L 04/16/25 17:20 Sodium 134.0 mmol/L (131-143) 04/16/25 17:20 Potassium 2.8 mmol/L (3.5-5.0) L 04/16/25 17:20 Glucose 161.0 mg/dL (70-115) H 04/16/25 17:20 Ionized Calcium 1.1 mmol/L (1.1-1.4) 04/16/25 17:20 O2 Delivery Device Vent 04/16/25 17:20 O2 Liters/Min 3.0 % 04/16/25 07:16 FiO2 100.0 % 04/16/25 17:20 Tidal Volume 0.45 04/16/25 17:20 PEEP 5.0 cmH20 04/16/25 17:20 Radio Machinist ID Broma 04/16/25 17:20 Sodium 139 mmol/L (136-145) 04/16/25 22:19 Potassium 4.3 mmol/L (3.5-5.1) 04/16/25 22:19 Chloride 89 mmol/L (98-107) L 04/16/25 22:19 Carbon Dioxide 38 mmol/L (22-29) H 04/16/25 22:19 Anion Gap 16.3 (5-19) 04/16/25 22:19 BUN 37 mg/dL (8-23) H 04/16/25 22:19 Creatinine 1.7 mg/dL (0.7-1.2) H 04/16/25 22:19 GFR Calculation Not Reportable 04/16/25 22:19 Glucose 149 mg/dL (65-115) H 04/16/25 22:19 Calculated Osmolality 299 mOsm/kg (285-295) H 04/16/25 22:19 Lactic Acid 3.1 mmol/L (0.5-2.2) H 04/16/25 07:13 Lactic Acid (Sepsis) 1.6 mmol/L (0.5-2.2) 04/16/25 10: Lactate 2.8 mmol/L (0.5-2.2) H 04/16/25 16:16 Calcium 8.7 mg/dL (8.5-10.5) 04/16/25 22:19 Phosphorus 4.1 mg/dL (2.5-4.5) 04/16/25 16:16 Magnesium 2.3 mg/dL (1.7-2.3) 04/16/25 16:16 Total Bilirubin 1.1 mg/dL (0.15-1.2) 04/16/25 16:16 AST 254 U/L (0-40) H 04/16/25 16:16 ALT 273 U/L (0-41) H 04/16/25 16:16 Alkaline Phosphatase 65 U/L (40-130) 04/16/25 16:16 Troponin T 5th Gen ng/L Cancelled 04/16/25 14:04 Troponin T Baseline 193 ng/L (0-15) H* 04/16/25 16:16 Troponin T 120 Minute 278.3 ng/L (0-15) H 04/16/25 18:16 Delta Troponin T 85.3 ABS# (0-10) H* 04/16/25 18:16 Troponin T Hi Sens 6Hr 17.29 ng/L (0-15) H 04/16/25 14:04 Troponin T Hi Sens 6Hr Delta -6.71 ng/L (0-12) L 04/16/25 14:04 C-Reactive Protein 200.6 mg/L (0.0-4.9) H 04/16/25 07:13 NT-Pro-B Natriuret Pep 131 pg/mL (0-125) H 04/16/25 16:16 Total Protein 5.1 g/dL (6.6-8.7) L D 04/16/25 16:16 Albumin 3.4 g/dL (3.5-5.2) L 04/16/25 16:16 Globulin 1.7 g/dL (1.3-4.6) 04/16/25 16:16 Lipase 88 U/L (13-60) H 04/16/25 07:13 Urine Color Dark yellow (Yellow) A 04/16/25 09:15 Urine Appearance Cloudy (CLEAR) A 04/16/25 09:15 Urine pH 7.5 (5-7) 04/16/25 09:15 Ur Specific [place] 1.018 (1.005-1.030) 04/16/25 09:15 Urine Protein 2+ (Negative) A 04/16/25 09:15 Urine Glucose (UA) Negative (Normal) 04/16/25 09:15 Urine Ketones 2+ (Negative) H 04/16/25 09:15 Urine Blood Trace (Negative) A 04/16/25 09:15 Urine Nitrate Negative (Negative) 04/16/25 09:15 Urine Bilirubin Negative (Negative) 04/16/25 09:15 Urine Urobilinogen 1.0 mg/dL (Negative) 04/16/25 09:15 Ur Leukocyte Esterase Trace (Negative) A 04/16/25 09:15 Urine RBC 0-4 /hpf (0-2) H 04/16/25 09:15 Urine WBC Rare /hpf (0-5) 04/16/25 09:15 Ur Squamous Epith Cells Rare /hpf (0-5) 04/16/25 09:15 Amorphous Sediment Not Reportable 04/16/25 09:15 Urine Bacteria 1+ /hpf (NONE) H 04/16/25 09:15 Hyaline Casts 0-4 /lpf H 04/16/25 09:15 Urine Opiates Screen Negative ng/mL (Negative) 04/16/25 09:15 Ur Barbiturates Screen Negative ng/mL (Negative) 04/16/25 09:15 Ur Phencyclidine Scrn Negative ng/mL (Negative) 04/16/25 09:15 Ur Amphetamines Screen Negative ng/mL (Negative) 04/16/25 09:15 U Benzodiazepines Scrn Negative ng/mL (Negative) 04/16/25 09:15 Urine Cocaine Screen Negative ng/mL (Negative) 04/16/25 09:15 U Marijuana (THC) Screen Negative ng/mL (Negative) 04/16/25 09:15 Influenza A (PCR) Negative (Negative) 04/16/25 07:22 Influenza Type B (PCR) Negative (Negative) 04/16/25 07:22 RSV (PCR) Negative (Negative) 04/16/25 07:22 SARS-CoV-2 (PCR) Negative (Negative) 04/16/25 07:22 Radiology Impressions Chest/Abdomen X-ray 04/16/25 07:12 IMPRESSION: 1. COPD/emphysema. 2. No airspace disease. ADDENDUM: 04/16/25 1253 Addendum: Additional images of the abdomen demonstrate mild to moderate air distension of the stomach with air distended proximal small bowel. No free air. Bilateral hip prostheses. Abdomen/Pelvis CT 04/16/25 08:06 IMPRESSION: 1. High-grade proximal small bowel obstruction with incarcerated LEFT inguinal hernia with a narrow neck high risk for strangulation. Associated induration in the inguinal hernia sac. No pneumatosis. Recommend urgent surgical consultation. 2. Small bowel distal to the hernia appears collapsed. Colon is collapsed. Notified Kinsey Mullins MD at 04/16/2025 9:08 AM. Chest X-Ray 04/16/25 16:55 IMPRESSION: 1. Bilateral pleural effusions with bibasal atelectasis. 2. Interval placement of a right internal jugular vein central line. Recent Clincial Data Last Vital Signs Temp 98.1 F 04/16/25 23:09 Pulse 67 04/17/25 01:38 Resp 10 L 04/16/25 21:00 BP 128/77 04/17/25 01:38 Pulse Ox 96 04/17/25 01:38 O2 Del Method Mechanical Ventilation 04/16/25 15:23 O2 Flow Rate 3 04/16/25 12:53 FiO2 60 04/16/25 21:00 Vital Signs Temp Pulse Resp BP Pulse Ox O2 Del Method FiO2 04/17/25 01:38 67 128/77 96 04/17/25 00:45 108/65 04/17/25 00:30 58 L 128/77 04/17/25 00:15 64 124/72 04/17/25 00:00 65 109/62 04/16/25 23:45 57 L 105/65 04/16/25 23:30 58 L 104/64 04/16/25 23:15 57 L 105/63 04/16/25 23:09 98.1 F 04/16/25 23:00 56 L 114/66 04/16/25 22:45 55 L 121/63 04/16/25 22:30 54 L 110/66 04/16/25 22:15 58 L 104/65 04/16/25 22:00 54 L 103/64 04/16/25 21:45 56 L 101/65 04/16/25 21:30 57 L 98/62 04/16/25 21:15 57 L 100/65 04/16/25 21:00 58 L 114/63 04/16/25 21:00 10 L 98 60 04/16/25 20:45 60 100/63 97 04/16/25 20:30 61 108/62 04/16/25 20:15 60 87/58 04/16/25 20:00 71 95/61 98 04/16/25 20:00 60 04/16/25 19:45 73 97/61 04/16/25 19:30 73 98/64 04/16/25 19:15 74 92/64 04/16/25 19:00 67 90/59 04/16/25 17:55 73 97/63 98 04/16/25 17:50 72 97/63 98 04/16/25 17:45 72 100/61 04/16/25 17:40 70 100/61 98 04/16/25 17:40 12 98 100 04/16/25 17:35 69 100/61 98 04/16/25 17:30 72 91/55 04/16/25 17:25 70 91/55 98 04/16/25 17:20 68 91/55 98 04/16/25 17:15 73 99/65 04/16/25 17:10 72 99/65 98 04/16/25 17:05 75 99/65 98 04/16/25 17:00 68 110/69 04/16/25 16:55 77 110/69 98 04/16/25 16:50 72 110/69 98 04/16/25 16:45 70 99/58 04/16/25 16:40 73 99/58 99 04/16/25 16:35 69 99/58 97 04/16/25 16:30 69 110/60 04/16/25 16:25 70 110/60 96 04/16/25 16:20 69 110/60 96 04/16/25 16:15 75 96/59 97 04/16/25 16:10 77 96/59 95 04/16/25 16:05 81 104/62 90 04/16/25 16:00 98.5 F 82 106/58 91 04/16/25 15:55 87 106/58 89 L 04/16/25 15:50 91 106/58 93 04/16/25 15:45 93 98/66 89 L 04/16/25 15:40 91 119/68 88 L 04/16/25 15:35 81 119/68 94 04/16/25 15:30 109 H 119/68 93 04/16/25 15:25 115 H 119/68 92 04/16/25 15:23 Mechanical Ventilation 04/16/25 15:20 119 H 119/68 91 04/16/25 15:15 97.6 F 99 126/69 94 04/16/25 15:10 94 126/69 96 04/16/25 15:05 100 126/69 97 04/16/25 15:05 14 98 40 04/16/25 15:00 95 152/78 98 04/16/25 14:55 88 152/78 98 04/16/25 14:50 81 152/78 100 Intake & Output/Weight 04/14/25 04/15/25 04/16/25 04/17/25 06:59 06:59 06:59 06:59 Intake Total 8515.203 / 8515.203 Output Total 1200 / 1200 Balance 7315.203 / 7315.203 Weight 74 kg Vitals Last Vital Signs Temp 98.1 F 04/16/25 23:09 Pulse 67 04/17/25 01:38 Resp 10 L 04/16/25 21:00 BP 128/77 04/17/25 01:38 Pulse Ox 96 04/17/25 01:38 O2 Del Method Mechanical Ventilation 04/16/25 15:23 O2 Flow Rate 3 04/16/25 12:53 FiO2 60 04/16/25 21:00 TS Medications Medications Discontinued Medications Acetazolamide (Acetazolamide 250 Mg Tablet) 500 mg PO DAILY MICHELLE Acetazolamide (Acetazolamide 250 Mg Tablet) 500 mg OG-TUBE DAILY MICHELLE Last Admin: 04/16/25 20:11 Dose: 500 mg Albuterol Sulfate (Albuterol 2.5 Mg/3 Ml Neb) 2.5 mg INHALATION ONCE PRN PRN Reason: WHEEZING Amiodarone HCl (Amiodarone 50 Mg/Ml Sdv 3 Ml) 150 mg IVP ONCE ONE Stop: 04/16/25 14:19 Last Admin: 04/16/25 14:18 Dose: 150 mg Calcium Chloride (Calcium Chloride 10% Syr 10 Ml) Confirm Administered Dose 1 gm .ROUTE .STK-MED ONE Stop: 04/16/25 14:51 Dexamethasone (Dexamethasone 4 Mg/Ml Inj) 4 mg IVP Q5M PRN PRN Reason: Nausea unrelieved by Reglan Stop: 04/17/25 13:06 Epinephrine HCl (Epinephrine 0.1 Mg/Ml Syr 10 Ml) Confirm Administered Dose 2 mg .ROUTE .STK-MED ONE Stop: 04/16/25 14:51 Famotidine (Famotidine 20 Mg/2 Ml Inj) 20 mg IVP ONCE PRN PRN Reason: HEARTBURN Fentanyl (Fentanyl 50 Mcg/Ml Inj 2ml) Confirm Administered Dose 100 mcg .ROUTE .STK-MED ONE Stop: 04/16/25 12:43 Furosemide (Furosemide 10 Mg/Ml Sdv 2ml) 20 mg IVP ONCE ONE Stop: 04/16/25 20:58 Last Admin: 04/16/25 21:45 Dose: 20 mg Sodium Chloride (Sodium Chloride 0.9%) 1,000 mls @ 999 mls/hr IV .Q1H1M ONE Stop: 04/16/25 08:23 Last Infusion: 04/16/25 15:52 Dose: Infused Sodium Chloride (Sodium Chloride 0.9%) 1,000 mls @ 999 mls/hr IV .Q1H1M ONE Stop: 04/16/25 08:23 Last Infusion: 04/16/25 15:52 Dose: Infused Linezolid (Zyvox Premix) 600 mg in 300 mls @ 300 mls/hr IV ONCE ONE; Protocol Stop: 04/16/25 09:21 Last Infusion: 04/16/25 15:51 Dose: Infused Sodium Chloride (Sodium Chloride 0.9%) 1,000 mls @ 999 mls/hr IV .Q1H1M ONE Stop: 04/16/25 11:46 Last Infusion: 04/16/25 15:52 Dose: Infused Potassium Chloride (K-Daren) 100 mls @ 25 mls/hr IV ONCE ONE Stop: 04/16/25 14:45 Last Admin: 04/16/25 12:15 Dose: Not Given Potassium Chloride/Sodium Chloride (Sodium Chlor 0.9% + Kcl 40 Meq) 40 meq in 1,000 mls @ 333 mls/hr IV .Q3H1M MICHELLE Stop: 04/16/25 17:30 Last Admin: 04/16/25 15:51 Dose: Not Given Potassium Chloride (K-Daren Premix) 100 mls @ 50 mls/hr IV Q2H MICHELLE Stop: 04/16/25 15:44 Potassium Chloride/Sodium Chloride (Sodium Chlor 0.9% + Kcl 40 Meq) 40 meq in 1,000 mls @ 250 mls/hr IV .Q4H MICHELLE Stop: 04/16/25 21:51 Last Infusion: 04/16/25 20:21 Dose: Infused Sodium Chloride (Sodium Chloride 0.9%) 1,000 mls @ 30 mls/hr IV .Q24H MICHELLE Stop: 04/17/25 13:14 Last Infusion: 04/16/25 20:46 Dose: 0 mls/hr Sodium Chloride (Sodium Chloride 0.9%) 500 mls @ 999 mls/hr IV .Q31M PRN PRN Reason: HYPOTENSION Sodium Chloride (Sodium Chloride 0.9%) Confirm Administered Dose 250 mls @ as directed .ROUTE .STK-MED ONE Stop: 04/16/25 13:11 Last Admin: 04/16/25 15:51 Dose: Not Given AMIODARONE HCL/D5W (Amiodarone 900 Mg/500 Ml-D5w) 900 mg in 500 mls @ 0 mls/hr IV .Q0M MICHELLE; Protocol Last Titration: 04/16/25 21:11 Dose: 0.5 mg/min, 16.67 mls/hr Propofol (Diprivan) 1,000 mg in 100 mls @ 0 mls/hr IV .Q0M MICHELLE; Protocol Last Titration: 04/16/25 23:35 Dose: 25 mcg/kg/min, 11.29 mls/hr Fentanyl (Sublimaze) 1,000 mcg in 100 mls @ 0 mls/hr IV .Q0M MICHELLE; Protocol Last Admin: 04/17/25 00:14 Dose: 125 mcg/hr, 12.5 mls/hr Norepinephrine Bitartrate (Levophed) 4 mg in 250 mls @ 0 mls/hr IV .Q0M MICHELLE; Protocol Last Admin: 04/17/25 01:36 Dose: 16 mcg/min, 60 mls/hr Potassium Chloride/Sodium Chloride (Sodium Chlor 0.9% + Kcl 40 Meq) 40 meq in 1,000 mls @ 500 mls/hr IV .Q2H MICHELLE Stop: 04/16/25 22:59 Last Infusion: 04/16/25 23:24 Dose: Infused Vasopressin (Vasostrict) 40 unit in 100 mls @ 0 mls/hr IV .Q0M MICHELLE; Protocol Last Titration: 04/16/25 23:06 Dose: 0.02 unit/min, 3 mls/hr Potassium Chloride/Sodium Chloride (Sodium Chlor 0.9% + Kcl 40 Meq) 40 meq in 1,000 mls @ 250 mls/hr IV .Q4H MICHELLE Stop: 04/17/25 10:14 Last Infusion: 04/16/25 23:31 Dose: 0 mls/hr Piperacillin Sod/Tazobactam (Sod 3.375 gm/ Sodium Chloride) 50 mls @ 12.5 mls/hr IV Q12H MICHELLE; Protocol Last Admin: 04/16/25 23:13 Dose: 12.5 mls/hr Sodium Chloride (Sodium Chloride 0.9%) 1,000 mls @ 250 mls/hr IV .Q4H MICHELLE Last Admin: 04/16/25 23:47 Dose: 250 mls/hr Ipratropium [place] (Ipratropium 0.5 Mg/2.5 Ml Neb) 0.5 mg INHALATION ONCE PRN PRN Reason: WHEEZING Lidocaine HCl (Lidocaine 1% Inj 20 Ml) 0.1 ml INTRADERMA PRN PRN PRN Reason: anesthetic prior to IV start Stop: 04/17/25 13:05 Lorazepam (Lorazepam 1 Mg/0.5 Ml Injection) 1 mg IVP ONCE ONE Stop: 04/16/25 09:01 Last Admin: 04/16/25 09:03 Dose: 1 mg Meropenem (Meropenem 500 Mg Sdv) 500 mg IVP ONCE ONE; Protocol Stop: 04/16/25 08:23 Last Admin: 04/16/25 09:04 Dose: 500 mg Metoclopramide HCl (Metoclopramide 5 Mg/Ml Sdv 2 Ml) 10 mg IVP ONCE PRN PRN Reason: N/V if zofran ineffective Metoclopramide HCl (Metoclopramide 5 Mg/Ml Sdv 2 Ml) 10 mg IVP Q5M PRN PRN Reason: Nausea unrelieved by Zofran Stop: 04/17/25 13:06 Midazolam HCl (Midazolam 1 Mg/Ml Inj 2 Ml) Confirm Administered Dose 2 mg .ROUTE .STK-MED ONE Stop: 04/16/25 12:44 Midazolam HCl (Midazolam 1 Mg/Ml Inj 5 Ml) 5 mg IVP ONCE PRN PRN Reason: Per anesthesia for block Midazolam HCl (Midazolam 1 Mg/Ml Inj 2 Ml) 2 mg IVP Q5M PRN PRN Reason: Preop Anxiety Midazolam HCl (Midazolam 1 Mg/Ml Inj 2 Ml) Confirm Administered Dose 2 mg .ROUTE .STK-MED ONE Stop: 04/16/25 14:23 Norepinephrine Bitartrate (Norepinephrine 1 Mg/Ml Sdv 4 Ml) Confirm Administered Dose 4 mg .ROUTE .[employer]-MED ONE Stop: 04/16/25 12:57 Ondansetron HCl (Ondansetron 2 Mg/Ml Sdv 2 Ml) 8 mg IVP ONCE ONE Stop: 04/16/25 07:24 Last Admin: 04/16/25 07:43 Dose: 8 mg Ondansetron HCl (Ondansetron 2 Mg/Ml Sdv 2 Ml) 8 mg IVP ONCE ONE Stop: 04/16/25 08:13 Last Admin: 04/16/25 08:20 Dose: 8 mg Ondansetron HCl (Ondansetron 2 Mg/Ml Sdv 2 Ml) 4 mg IVP Q5M PRN PRN Reason: NAUSEA AND VOMITING Ondansetron HCl (Ondansetron 2 Mg/Ml Sdv 2 Ml) 4 mg IVP Q5M PRN PRN Reason: Nausea PACU Phase I Stop: 04/17/25 13:06 Ondansetron HCl (Ondansetron 2 Mg/Ml Sdv 2 Ml) 4 mg IVP Q15M PRN PRN Reason: Nausea/Vomiting PACU PHASE II Propofol (Propofol 10 Mg/Ml Sdv 20 Ml) Confirm Administered Dose 200 mg .ROUTE .[employer] [place]-MED ONE Stop: 04/16/25 12:43 Scopolamine (Scopolamine 1 Mg Patch) 1 patch TRANSDERMA ONCE PRN PRN Reason: Nausea/ Vomiting Prophylaxis Allergies clonidine Allergy (Verified 11/02/22 09:38) Unknown EDEMA codeine Allergy (Verified 11/02/22 09:38) ADR-Nausea haloperidol (From Haldol) Allergy (Verified 11/02/22 09:38) ADR-Anxiety meperidine (From Demerol) Allergy (Verified 11/02/22 09:38) ALGY-Anaphylaxis pentazocine (From Talwin) Allergy (Verified 11/02/22 09:38) ADR-Nausea tramadol Allergy (Verified 11/02/22 09:38) ADR-Nausea Home Medications Kratom 4 - 5 g PO BID 04/16/25 [History Confirmed 04/16/25] acetaminophen 500 mg tablet (Tylenol Extra Strength) 100 mg PO QID PRN Fever Or Pain 04/16/25 [History Confirmed 04/16/25] cholecalciferol (vitamin D3) 125 mcg (5,000 unit) tablet (Vitamin D3) 125 mcg PO DAILY 04/16/25 [History Confirmed 04/16/25] liver extract 1 tab PO DAILY 04/16/25 [History Confirmed 04/16/25] magnesium glycinate 100 mg PO DAILY 04/16/25 [History Confirmed 04/16/25] milk thistle 150 mg capsule 150 mg PO BID 04/16/25 [History Confirmed 04/16/25] saw palmetto 500 mg capsule 500 mg PO BID 04/16/25 [History Confirmed 04/16/25] vitamin K2 90 mcg capsule 90 mcg PO DAILY 04/16/25 [History Confirmed 04/16/25] Discharge Plan Discharge Patient Disposition: Xfer Short-Term Hosp Condition: Stable Prescriptions: No Action milk thistle 150 mg Capsule 150 mg PO BID Rx Instructions: give with meal/snack saw palmetto 500 mg Capsule 500 mg PO BID cholecalciferol (vitamin D3) [Vitamin D3] 125 mcg (5,000 unit) Tablet 125 mcg PO DAILY magnesium glycinate 100 mg magnesium Capsule 100 mg PO DAILY vitamin K2 90 mcg Capsule 90 mcg PO DAILY Kratom 4 - 5 g PO BID acetaminophen [Tylenol Extra Strength] 500 mg Tablet 100 mg PO QID PRN (Reason: Fever Or Pain) liver extract Tablet 1 tab PO DAILY Discharge Order = DC NOW: Discharge Order (Routine); Ordered 04/17/25 Ordered By: Lopez Nguyen Referrals: [facility] [Other] Chato Marquez DO [Primary Care Provider, [facility]] Patient Instructions: Opioid Safety, Patient Portal & Eugenie Instructions Transfer Attestations Time Spent in Transfer Care: greater than 30 min Quality Metrics Clinical Quality Measures [ No reported AMI, CVA or VTE this stay] Coding Level of Care Code 43512 Total time (in minutes) for Discharge: 55 Diagnoses Metabolic alkalosis E87.3
== END 2025-04-17 01:14 | disposition short-term general hospital (02) | DRG 871 ==
LOC: ER 09:16 → ICU 10:36
PROVIDERS: Family Medicine; Internal Medicine; Admitting Provider Specialist; Emergency Provider Emergency Medicine; PCP Family Medicine; Visit Provider Specialist
DX: A41.9 Sepsis, unspecified organism (principal); I46.2 Cardiac arrest due to underlying cardiac condition; K40.30 Unilateral inguinal hernia, with obstruction, without gangrene, not specified as recurrent; E87.3 Alkalosis; I47.20 Ventricular tachycardia, unspecified; N17.9 Acute kidney failure, unspecified; E87.1 Hypo-osmolality and hyponatremia; R57.9 Shock, unspecified; I10 Essential (primary) hypertension; E87.6 Hypokalemia; E87.8 Other disorders of electrolyte and fluid balance, not elsewhere classified; R79.89 Other specified abnormal findings of blood chemistry; R94.31 Abnormal electrocardiogram [ECG] [EKG]; R09.02 Hypoxemia; M54.50 Low back pain, unspecified; G89.29 Other chronic pain; Z79.899 Other long term (current) drug therapy; Z88.5 Allergy status to narcotic agent; Z88.8 Allergy status to other drugs, medicaments and biological substances; Z87.891 Personal history of nicotine dependence; Z96.643 Presence of artificial hip joint, bilateral; Z11.52 Encounter for screening for COVID-19; Z79.82 Long term (current) use of aspirin; Z53.8 Procedure and treatment not carried out for other reasons
CPT/HCPCS: 36415; 36600; 51702; 71045; 71046; 74022; 74176; 80048; 80051; 80053; 80306; 81001; 82330; 82805; 83605; 83690; 83735; 83880; 84100; 84484; 85025; 86140; 87040; 87637; 93005; 93306; 94799; 96361; 96365; 96366; 96367; 96375; 99291; J0169; J0282; J1938; J2020; J2060; J2185; J2250; J2405; J2543; J2598; J2704; J3010; J3490; J7030; J9999